=== PATIENT | female | born 1970 | race Caucasian/White ===

== ENCOUNTER 2016-06-20 15:25 | Outpatient (CLI) ==
[2015-01-30 09:40] VITALS: BMI 28.2
[2016-06-20 16:26] LABS: BASOPHILS % (AUTO) 0.4 % (0.0-3.0); EOSINOPHILS # (AUTO) 0.1 K/ul (0.0-0.7); EOSINOPHILS % (AUTO) 0.8 % (0.0-7.0); HEMATOCRIT 44.3 % (37.0-47.0); HEMOGLOBIN 15.3 g/dl (12.0-16.0); IMMATURE GRANULOCYTE % (AUTO) 0.3 % (0.0-5.0); LYMPHOCYTES # (AUTO) 2.3 K/uL (0.60-3.4); LYMPHOCYTES % (AUTO) 30.7 (10.0-50.0); MEAN CORPUSCULAR HEMOGLOBIN 38.3 pg (27.0-31.0); MEAN CORPUSCULAR HGB CONC 34.5 (31.8-35.4); MEAN CORPUSCULAR VOLUME 110.8 fl (81.0-99.0); MONOCYTES # (AUTO) 0.5 K/uL (0.4-2.0); MONOCYTES % (AUTO) 6.3 (0-10); NEUTROPHILS # (AUTO) 4.6 K/ul (2.0-6.9); NEUTROPHILS % (AUTO) 61.5; PLATELET COUNT 200 10^3/uL (140-440); WHITE BLOOD COUNT 7.45 K/ul (4.6-10.2)
[2016-06-20 17:58] LABS: ALBUMIN 3.5 g/dL (3.4-5.0); ALBUMIN/GLOBULIN RATIO 1.13; ANION GAP 14.7; BILIRUBIN,TOTAL 1.03 mg/dL (0.00-1.20); BUN/CREATININE RATIO 8.69; CALCIUM 9.1 mg/dL (8.2-10.2); CHOL/HDL RATIO 3.6 (4.5-5.5); CREATININE 0.69 mg/dL (0.60-1.30); POTASSIUM 3.7 mmol/L (3.5-5.10); TOTAL PROTEIN 6.6 g/dL (6.4-8.2)
== END 2016-06-20 15:26 | disposition home or self-care (01) ==
LOC: LAB 15:25
PROVIDERS: ATTEND Nurse Practitioner Family
DX: E78.5 Hyperlipidemia, unspecified (principal); K21.9 Gastro-esophageal reflux disease without esophagitis
CPT/HCPCS: 36415; 80053; 80061; 84439; 84443; 85025

== ENCOUNTER 2016-07-05 08:54 | Emergency (ER) ==
[2016-07-05 08:59] VITALS: BP 104/72; TEMP 99.3; BMI 27.9
[2016-07-05] MEDS ORDERED: URO-JET MUCOUSMEMB STA (09:03)
--- NOTE | 2016-07-05 09:04 | ED.PDOC ---
General ED Provider: Dr. GILMA GONSALEZ JR Chief Complaint: Back Pain Stated Complaint: patient c/o sudden onset of low back pain. patient states she feels like she has to urinate but then just a little comes out. patient states that if any pressure in abd. it makes back worse. 99.3 108 16 97% 104/ 72 10 Time Seen by Physician: 09:51 Mode of Arrival: Walk-In Information Source: Patient Exam Limitations: No limitations Primary Care Provider: PEGGY GRIFFITH Nursing and Triage Documentation Reviewed and Agree: No Review of Systems - Review Of Systems Constitutional: Reports: No symptoms Eyes: Reports: No symptoms Ears, Nose, Mouth, Throat: Reports: No symptoms Respiratory: Reports: No symptoms Cardiac: Reports: No symptoms GI: Reports: Abdominal pain : Reports: Burning, Dysuria, Frequency, Pain, Urgency Musculoskeletal: Reports: No symptoms Skin: Reports: No symptoms Neurological: Reports: No symptoms Endocrine: Reports: No symptoms Hematologic/Lymphatic: Reports: No symptoms All Other Systems: Other Past Medical History - Past Medical History Endocrine: Reports: None Cardiovascular: Reports: None Respiratory: Reports: None Hematological: Reports: None Gastrointestinal: Reports: Pancreatitis Genitourinary: Reports: None Neuro/Psych: Reports: None Musculoskeletal: Reports: None Cancer: Reports: None Last Menstrual Period: years ago - Surgical History General Surgical History: Reports: None - Family History Family History: Reports: Unknown - Social History Smoking Status: Current every day smoker Hx Substance Use: No Alcohol Screening: Occasionally Physical Exam - Physical Exam Appearance: Well-appearing Pain Distress: Moderate Neck: Supple Respiratory: Airway patent GI/: Tender Critical Care Note - Critical Care Note Total Time (mins): 0 Course - Course Orders, Labs, Meds: Lab Review 07/05/16 09:11 Urine Color Dark Urine Clarity Cloudy Urine pH 6.0 Ur Specific [place] 1.020 Urine Protein 3+ Urine Glucose (UA) Negative Urine Ketones Trace Urine Blood 2+ Urine Nitrite Positive Urine Bilirubin 1+ Urine Urobilinogen 1.0 Ur Leukocyte Esterase 3+ Urine Microscopic WBC Tntc Ur Squamous Epith Cells Not present Orders Category Date Time Status Bladder Scan [ED BLADDER SCAN] .ONCE EMERGENCY 07/05/16 09:00 Active Luna [ED CATHETER INSERTION AND CARE] .ONCE EMERGENCY 07/05/16 09:03 Inactive UA [URINALYSIS C & S IF INDICATED] Stat LAB 07/05/16 09:11 Completed URINE CULTURE Stat LAB 07/05/16 09:22 Received Nitrofurantoin Monohyd/M-Cryst [Macrobid] MEDS 07/05/16 09:50 Discontinued 100 mg PO ONCE STA Medications Discontinued Medications Generic Name Dose Route Start Last Admin Trade Name Freq PRN Reason Stop Dose Admin Nitrofurantoin Macrocrystals 100 mg 07/05/16 09:50 07/05/16 10:04 Macrobid PO 07/05/16 09:51 100 mg ONCE STA Administration Vital Signs: Temp Pulse Resp BP Pulse Ox 07/05/16 08:55 99.3 F 108 H 16 104/72 97 Departure - Departure Time of Disposition: 10:07 Disposition: HOME SELF-CARE Discharge Problem: Backache, UTI (urinary tract infection) Instructions: Urinary Tract Infection in Women (ED), Phenazopyridine (By mouth) Condition: Fair Pt referred to PMD for follow-up: Yes Additional Instructions: recheck urine in two weeks take antibiotic for one week 8-10 cups of water or clear liquids daily Tylenol and Motrin for pain and fever pyridium may help for urinary discomfort Prescriptions: Ibuprofen [Motrin] 600 mg PO QID PRN #30 tablet PRN Reason: PAIN Nitrofurantoin Monohyd/M-Cryst [Macrobid] 100 mg PO BID #14 capsule Allergies/Adverse Reactions: Allergies levofloxacin [From Levaquin] Adverse Reaction (Verified 01/30/15 09:53) levofloxacin Adverse Reaction (Uncoded 09/25/13 20:49) Home Medications: Ambulatory Orders Multivitamin [Multi-Vitamin Daily] 1 tab PO DAILY 09/25/13 Tizanidine HCl [Zanaflex] 4 mg PO BID 11/03/15 Gabapentin 200 mg PO TID 06/20/16 Oxycodone HCl/Acetaminophen [Oxycodon-Acetaminophen 7.5-325] 1 each PO TID 06/20 Ibuprofen 800 mg PO BID PRN 07/05/16 Ibuprofen [Motrin] 600 mg PO QID PRN #30 tablet 07/05/16 Nitrofurantoin Monohyd/M-Cryst [Macrobid] 100 mg PO BID #14 capsule 07/05/16 Sucralfate [Carafate] 1 gm PO PRN PRN 07/05/16
[2016-07-05 09:17] LABS: BILIRUBIN,URINE 1+ (NEGATIVE); KETONES,URINE Trace (NEGATIVE); LEUKOCYTE ESTERASE ,URINE 3+ (NEGATIVE); NITRITE,URINE Positive (NEGATIVE); PROTEIN,URINE 3+ (NEGATIVE); URINE, BLOOD 2+ (NEGATIVE)
[2016-07-05 09:22] LABS: ADD URINE MICROSCOPIC YES
[2016-07-05] MEDS ORDERED: MACROBID PO STA (09:50)
== END 2016-07-05 10:36 | disposition home or self-care (01) ==
LOC: ED 08:54
DX: N39.0 Urinary tract infection, site not specified (principal); F17.210 Nicotine dependence, cigarettes, uncomplicated
CPT/HCPCS: 81001; 87086; 87186; 99282

== ENCOUNTER 2016-07-06 08:52 | Emergency (ER) ==
[2016-07-06 08:58] VITALS: TEMP 97.6; BMI 27.4
[2016-07-06] MEDS ORDERED: SODIUM CHLORIDE 1,000 ML IV STA ×2 (09:06→13:14)
--- NOTE | 2016-07-06 09:34 | DI ---
EXAM: Chest two view, frontal and lateral views. HISTORY: Cough. COMPARISON: 08/07/2013. FINDINGS: Heart size is at the upper limits of normal. There is consolidation in the left lower lo be along the diaphragm. Lungs otherwise clear save for calcified granulomatous changes. No pleural effusion or pneumothorax identified. No acute osseous abnormality identified. High density projec ting over the left shoulder on the frontal view is not clearly seen on the lateral view, likely exte rnal to the patient. IMPRESSION: Left basilar pneumonia.
[2016-07-06 09:53] LABS: BASOPHILS % (AUTO) 0.4 % (0.0-3.0); EOSINOPHILS % (AUTO) 0.1 % (0.0-7.0); HEMATOCRIT 39.1 % (37.0-47.0); HEMOGLOBIN 13.7 g/dl (12.0-16.0); IMMATURE GRANULOCYTE % (AUTO) 1.2 % (0.0-5.0); LYMPHOCYTES # (AUTO) 0.2 K/uL (0.60-3.4); MEAN CORPUSCULAR HEMOGLOBIN 38.7 pg (27.0-31.0); MEAN CORPUSCULAR VOLUME 110.5 fl (81.0-99.0); MONOCYTES # (AUTO) 0.1 K/uL (0.4-2.0); MONOCYTES % (AUTO) 0.7 (0-10); NEUTROPHILS # (AUTO) 10.8 K/ul (2.0-6.9); NEUTROPHILS % (AUTO) 95.6; PLATELET COUNT 123 10^3/uL (140-440); RED BLOOD COUNT 3.54 10^6/ul (4.20-5.40); WHITE BLOOD COUNT 11.25 K/ul (4.6-10.2)
[2016-07-06 10:01] LABS: ANISOCYTOSIS NOT PRESENT (NOT PRESENT)
--- NOTE | 2016-07-06 10:11 | CT ---
EXAM: CT abdomen pelvis without contrast HISTORY: Left flank pain COMPARISON: CT lumbar spine 01/30/2015, CT abdomen pelvis 09/25/2013 and MRI 05/01/2014 TECHNIQUE: Serial axial images of the abdomen pelvis were performed from the lung bases through the inferior pelvis without contrast. These were viewed in multiple planes. FINDINGS: The lung bases demonstrate minimal ground-glass and airway thickening in the left lower l obe. Evaluation is limited due to lack of contrast. The left kidney demonstrates mild perinephric strandi ng. There are approximately five 0.2 cm in diameter stones in the left kidney with no hydronephrosi s or hydroureter. There is minimal inflammatory stranding extending inferiorly in the retroperitone um and along the course of the proximal ureter. The urinary bladder is nondistended. The right kid patricio demonstrates two nonobstructing stones. The largest in the inferior pole measuring 0.3 cm in di ameter. The liver is diffusely low in attenuation. The gallbladder is unremarkable. The spleen is normal. The adrenal glands are unremarkable. There is a large rounded low attenuation lesion in the pancre atic head measuring 3.0 x 2.4 x 3.1 cm. This demonstrates Hounsfield units consistent with cyst. No definitive peripancreatic inflammation is identified with stranding in the left retroperitoneum. The stomach is normal. There are scattered retroperitoneal lymph nodes which are nonpathologically enla rged. Small bowel in the abdomen pelvis is unremarkable. The colon is normal. The appendix is normal. T here is no free air, free fluid. The uterus is normal. The osseous structures are unremarkable. IMPRESSION: 1. Left perinephric stranding and inflammatory stranding involving the left retroperitoneum along t he course of the left ureter with no hydronephrosis, hydroureter or visualized stone. This is nonspe cific and may represent inflammatory versus early infectious changes. Given history of recurrent alvarez creatitis, recommend correlation with pancreatic enzymes to evaluate for subtle pancreatitis. 2. Cystic lesion in the head of the pancreas likely representing pseudocyst given history of recurr ent pancreatitis. If further evaluation is clinically indicated, MRI pancreatic protocol is recommended. 3. Bilateral nonobstructing renal stones are present.
[2016-07-06 10:13] LABS: ALANINE AMINOTRANSFERASE 45 U/L (12-78); ALBUMIN 3.2 g/dL (3.4-5.0); ALBUMIN/GLOBULIN RATIO 0.94; ALKALINE PHOSPHATASE 64 U/L (42-98); ANION GAP 18.5; ASPARTATE AMINO TRANSFERASE 42 U/L (15-37); BILIRUBIN,TOTAL 1.33 mg/dL (0.00-1.20); BLOOD UREA NITROGEN 29 mg/dL (7-18); BUN/CREATININE RATIO 10.39; CALCIUM 9.2 mg/dL (8.2-10.2); CARBON DIOXIDE 20 mmol/L (21-32); CHLORIDE 97 mmol/L (98-107); CREATINE KINASE 30 U/L; CREATININE 2.79 mg/dL (0.60-1.30); GLUCOSE 88 mg/dL (70-110); POTASSIUM 3.5 mmol/L (3.5-5.10); SODIUM 132 mmol/L (136-145); TOTAL PROTEIN 6.6 g/dL (6.4-8.2)
--- NOTE | 2016-07-06 10:22 | ED.PDOC ---
General ED Provider: Dr. LESLEY TAYLOR Chief Complaint: Weakness Stated Complaint: cough, weakness Time Seen by Physician: 09:00 (nurse present carmen) Mode of Arrival: Walk-In Information Source: Patient Nursing and Triage Documentation Reviewed and Agree: Yes (seen by maribell 1 day ago for uti) Respiratory Complaint Exam - Respiratory Complaint/Exam Symptoms Are: Still present Timing: Constant Initial Severity: Moderate Current Severity: Moderate Character: Reports: Non-productive cough Aggravating: Reports: Weather Alleviating: Reports: Spontaneous resolution, Nasal suction Associated Signs and Symptoms: Reports: Chills, Nasal congestion, Decreased oral intake History of Healthcare-Acquired Pneumonia: No Related Surgical History: Reports: None Pulmonary Embolism Risk Factors: Smoking Cardiac Risk Factors: Reports: Smoking Pseudomonas Risk Factors: Reports: None Tuberculosis Risk Factors: Reports: None Status Asthmaticus Risk Factors: Reports: None Home Oxygen Use: No Recent Stress Test: No Recent Echo/LV Function: No Current Antibiotic Use: No Current Asthma Medication Use: No Respiratory Distress: None Inadequate Respiratory Effort: No Dysphagia Present: No Stridor Present: No JVD Present: No Accessory Muscle Use: No Retractions: Not Present Diminished Breath Sounds: No Sinus Tenderness: None Grunting Respirations: No Kussmaul Respirations: No Differential Diagnoses: Pneumonia, Bronchitis, URI, Lower Resp. Infection Review of Systems - Review Of Systems Constitutional: Reports: Malaise, Weakness, Loss of appetite Eyes: Reports: No symptoms Ears, Nose, Mouth, Throat: Reports: No symptoms Respiratory: Reports: Cough Cardiac: Reports: No symptoms GI: Reports: No symptoms : Reports: No symptoms Musculoskeletal: Reports: No symptoms Skin: Reports: No symptoms Neurological: Reports: No symptoms Endocrine: Reports: No symptoms Hematologic/Lymphatic: Reports: No symptoms All Other Systems: Reviewed and Negative Past Medical History - Past Medical History Endocrine: Reports: None Cardiovascular: Reports: None Respiratory: Reports: None Hematological: Reports: None Gastrointestinal: Reports: Pancreatitis Genitourinary: Reports: None Neuro/Psych: Reports: None Musculoskeletal: Reports: None Cancer: Reports: None Last Menstrual Period: "years ago" - Surgical History General Surgical History: Reports: None - Family History Family History: Reports: Unknown - Social History Smoking Status: Current every day smoker Hx Substance Use: No Alcohol Screening: Occasionally Physical Exam - Physical Exam Appearance: Well-appearing Eyes: RADHA, EOMI, Conjunctiva clear ENT: Ears normal, Nose normal, Oropharynx normal Respiratory: Rhonchi (left lung) Cardiovascular: RRR, Pulses normal, No rub, No murmur GI/: Soft, Nontender, No masses, Bowel sounds normal, No Organomegaly Musculoskeletal: Normal strength, ROM intact, No edema, No calf tenderness Skin: Warm, Dry, Normal color Neurological: Sensation intact, Motor intact, Reflexes intact, Cranial nerves intact, Alert, Oriented Psychiatric: Affect appropriate, Mood appropriate Interpretation - Radiology Interpretation Radiology Interpretation By: Radiologist Radiology Results: Positive (lll infitrate) - Parallel Computing Software Engineer Rate: Normal Rhythm: Sinus Ectopy: None - EKG Interpretation Rate: Normal Rhythm: Sinus Ectopy: None [place]: NL ST Segment: Normal Re-Evaluation - Re-Evaluation Time of Re-Evaluation: 10:00 Status: Unchanged Vital Signs Stable: No Pain Level: 0 Appearance: NAD Lungs: Clear Skin: Warm and Dry Neuro: Alert and Oriented X3 CV: RRR - Re-Evaluation Time of Re-Evaluation: 14:18 Status: Unchanged Vital Signs Stable: No (refuses to be admitted i beggedpt to stay told her flat OUT THAT SHE WILL ) Appearance: NAD Skin: Warm and Dry Neuro: Alert and Oriented X3 (THAT SHE WILL IN MATTER OF HOURS SHE WOULD NOT AGREE WITH ADMISSION NOR TRANSFER MATIAS AT BEDSIDE THROUGH OUT THIS ISSUE REFUSES TO BE ADMITTED) CV: RRR Critical Care Note - Critical Care Note Total Time (mins): 0 Course - Course Hematology/Chemistry: 07/06/16 09:35 07/06/16 09:35 Orders, Labs, Meds: Lab Review 07/06/16 09:35 WBC 11.25 H RBC 3.54 L Hgb 13.7 Hct 39.1 MCV 110.5 H MCH 38.7 H MCHC 35.0 RDW Coeff of Mee 13.2 Plt Count 123 L Immature Gran % (Auto) 1.2 Neut % (Auto) 95.6 Lymph % (Auto) 2.0 L [place] % (Auto) 0.7 Eos % (Auto) 0.1 Baso % (Auto) 0.4 Immature Gran # (Auto) 0.1 Neut # 10.8 H Lymph # 0.2 L [place] # 0.1 L Eos # 0.0 Baso # 0.0 Macrocytosis 2+ Sodium 132 L Potassium 3.5 Chloride 97 L Carbon Dioxide 20 L Anion Gap 18.5 BUN 29 H Creatinine 2.79 H Estimated GFR (MDRD) 18.00 BUN/Creatinine Ratio 10.39 Glucose 88 Lactic Acid 26.6 H Calcium 9.2 Total Bilirubin 1.33 H AST 42 H ALT 45 Alkaline Phosphatase 64 Total Creatine Kinase 30 Troponin I < 0.0100 Total Protein 6.6 Albumin 3.2 L Globulin 3.4 Albumin/Globulin Ratio 0.94 Orders Category Date Time Status EKG-(ED ONLY) Stat CARDIO 07/06/16 09:06 Completed BLOOD CULTURE Stat LAB 07/06/16 09:35 Received CBC W/ AUTO DIFF Stat LAB 07/06/16 09:35 Completed COMPREHENSIVE METABOLIC PANEL Stat LAB 07/06/16 09:35 Completed CREATINE KINASE Stat LAB 07/06/16 09:35 Completed LACTIC ACID Stat LAB 07/06/16 09:35 Completed MOLECULAR GROUP A STREP Stat LAB 07/06/16 09:32 Results RBC MORPHOLOGY Stat LAB 07/06/16 09:35 Completed STREP SCREEN Stat LAB 07/06/16 09:32 Results TROPONIN I Stat LAB 07/06/16 09:35 Completed URINALYSIS C & S IF INDICATED Stat LAB 07/06/16 09:05 Uncollected Azithromycin Inj [Zithromax] 500 mg MEDS 07/06/16 10:30 Discontinued 0.9 % Sodium Chloride [Sodium Chloride] 250 ml IV ONCE Ceftriaxone Sodium [Rocephin] MEDS 07/06/16 10:33 Discontinued 2 gm .ROUTE .STK-MED ONE Ceftriaxone Sodium [Rocephin] 2 gm MEDS 07/06/16 10:29 Discontinued 0.9 % Sodium Chloride [Sodium Chloride] 100 ml IV ONCE Sodium Chloride 0.9% [Sodium Chloride] 1,000 ml MEDS 07/06/16 09:06 Discontinued IV BOLUS Sodium Chloride 0.9% [Sodium Chloride] 1,000 ml MEDS 07/06/16 13:14 Discontinued IV BOLUS CHEST, 2 VIEWS PA & LAT Stat RADS 07/06/16 09:[address] ABD/PEL WO RENAL STONE PROT Stat RADS 07/06/16 09:07 Completed Medications Discontinued Medications Generic Name Dose Route Start Last Admin Trade Name Freq PRN Reason Stop Dose Admin Sodium Chloride 1,000 mls @ 1,000 mls/hr 07/06/16 09:06 07/06/16 09:36 Sodium Chloride IV 07/06/16 10:05 1,000 mls/hr BOLUS STA Administration Ceftriaxone Sodium 2 gm/ 100 mls @ 100 mls/hr 07/06/16 10:29 07/06/16 10:43 Sodium Chloride IV 07/06/16 11:28 100 mls/hr ONCE STA Administration Azithromycin 500 mg/ Sodium 250 mls @ 125 mls/hr 07/06/16 10:30 07/06/16 12: 00 Chloride IV 07/06/16 12:29 125 mls/hr ONCE STA Administration Sodium Chloride 1,000 mls @ 1,000 mls/hr 07/06/16 13:14 07/06/16 13:15 Sodium Chloride IV 07/06/16 14:13 1,000 mls/hr BOLUS STA Administration Vital Signs: Temp Pulse Resp BP Pulse Ox 07/06/16 13:09 76/39 L 07/06/16 08:52 97.6 F 101 H 20 85/63 L 94 L Departure - Departure Time of Disposition: 12:00 (PT REFUSING TO BE ADMITTED A[facility] PRESENT DURING MY ATTEMPT TO INFORM PT TO SATY PANCREASE CYST AND NEED FOR MRI DISCUSSED SOON POSSIBLE) Disposition: AMA Discharge Problem: Renal insufficiency, Cyst of pancreas Pneumonia Qualifiers: Aspiration pneumonia type: unspecified Laterality: left Instructions: Pneumonitis (ED), Hypotension (ED), Chronic Kidney Disease (ED) Condition: Good Pt referred to PMD for follow-up: No Additional Instructions: this is a highly deadly situation return at once if you should change your mind there a cysst on your pancrease these must be closely followed up sometime these cysts can turn in to cancer. THE PANCREASE CANCER IS HIGHLY DEADLY DISEASE , YOU MUST SEE YOUR MD FOR MRI OF THE PANCREASE . SOON POSSIBLE. Prescriptions: Azithromycin [Zithromax] 500 mg PO DIRECTED #6 tablet Allergies/Adverse Reactions: Allergies levofloxacin [From Levaquin] Adverse Reaction (Verified 01/30/15 09:53) levofloxacin Adverse Reaction (Uncoded 09/25/13 20:49) Home Medications: Ambulatory Orders Multivitamin [Multi-Vitamin Daily] 1 tab PO DAILY 09/25/13 Tizanidine HCl [Zanaflex] 4 mg PO BID 11/03/15 Gabapentin 200 mg PO TID 06/20/16 Oxycodone HCl/Acetaminophen [Oxycodon-Acetaminophen 7.5-325] 1 each PO TID 06/20 Ibuprofen 800 mg PO BID PRN 07/05/16 Ibuprofen [Motrin] 600 mg PO QID PRN #30 tablet 07/05/16 Nitrofurantoin Monohyd/M-Cryst [Macrobid] 100 mg PO BID #14 capsule 07/05/16 Sucralfate [Carafate] 1 gm PO PRN PRN 07/05/16 Azithromycin [Zithromax] 500 mg PO DIRECTED #6 tablet 07/06/16 Disposition Discussed With: Patient
[2016-07-06] MEDS ORDERED: ROCEPHIN 2 GM in SODIUM CHLORIDE 100 ML IV STA (10:29)
[2016-07-06] MEDS ORDERED: ZITHROMAX 500 MG in SODIUM CHLORIDE 250 ML IV STA (10:30)
[2016-07-06] MEDS ORDERED: ROCEPHIN ONE (10:33)
[2016-07-06 13:09] VITALS: BP 76/39
== END 2016-07-06 14:33 | disposition left against medical advice (07) ==
LOC: ED 08:52
DX: K86.2 Cyst of pancreas (principal); N28.9 Disorder of kidney and ureter, unspecified; J69.0 Pneumonitis due to inhalation of food and vomit; I95.9 Hypotension, unspecified; R05 Cough; R53.1 Weakness; F17.210 Nicotine dependence, cigarettes, uncomplicated
CPT/HCPCS: 36415; 74176; 80053; 82550; 83605; 84484; 85008; 85025; 87040; 87070; 87186; 87651; 87880; 93005; 93010; 96361; 96365; 96366; 96367; 99284

== ENCOUNTER 2016-07-11 11:02 | Outpatient (CLI) ==
[2016-07-11 11:26] LABS: BASOPHILS # (AUTO) 0.1 K/uL (0-0.2); BASOPHILS % (AUTO) 0.6 % (0.0-3.0); EOSINOPHILS # (AUTO) 0.2 K/ul (0.0-0.7); EOSINOPHILS % (AUTO) 1.3 % (0.0-7.0); HEMATOCRIT 38.2 % (37.0-47.0); HEMOGLOBIN 14.3 g/dl (12.0-16.0); IMMATURE GRANULOCYTE % (AUTO) 3.5 % (0.0-5.0); LYMPHOCYTES # (AUTO) 1.7 K/uL (0.60-3.4); LYMPHOCYTES % (AUTO) 13.3 (10.0-50.0); MEAN CORPUSCULAR HEMOGLOBIN 39.1 pg (27.0-31.0); MEAN CORPUSCULAR HGB CONC 37.4 (31.8-35.4); MEAN CORPUSCULAR VOLUME 104.4 fl (81.0-99.0); MONOCYTES # (AUTO) 0.9 K/uL (0.4-2.0); MONOCYTES % (AUTO) 6.8 (0-10); NEUTROPHILS # (AUTO) 9.7 K/ul (2.0-6.9); NEUTROPHILS % (AUTO) 74.5; PLATELET COUNT 64 10^3/uL (140-440); RED BLOOD COUNT 3.66 10^6/ul (4.20-5.40); WHITE BLOOD COUNT 12.99 K/ul (4.6-10.2)
[2016-07-11 11:33] LABS: BILIRUBIN,URINE 2+ (NEGATIVE); KETONES,URINE Negative (NEGATIVE); LEUKOCYTE ESTERASE ,URINE 1+ (NEGATIVE); NITRITE,URINE Positive (NEGATIVE); PROTEIN,URINE 1+ (NEGATIVE); URINE, BLOOD 3+ (NEGATIVE)
[2016-07-11 11:37] LABS: ADD URINE MICROSCOPIC YES
[2016-07-11 11:39] LABS: BACTERIA,URINE 1+ (NOT PRESENT)
[2016-07-11 12:00] LABS: ALBUMIN 2.5 g/dL (3.4-5.0); ALBUMIN/GLOBULIN RATIO 0.69; ANION GAP 14.9; BILIRUBIN,TOTAL 3.61 mg/dL (0.00-1.20); BUN/CREATININE RATIO 21.68; CALCIUM 9.5 mg/dL (8.2-10.2); CREATININE 0.83 mg/dL (0.60-1.30); POTASSIUM 2.9 mmol/L (3.5-5.10); TOTAL PROTEIN 6.1 g/dL (6.4-8.2)
== END 2016-07-11 11:03 | disposition home or self-care (01) ==
LOC: LAB 11:02
PROVIDERS: ATTEND Nurse Practitioner Family
DX: N39.0 Urinary tract infection, site not specified (principal); R94.4 Abnormal results of kidney function studies; K86.2 Cyst of pancreas; R19.7 Diarrhea, unspecified; R41.89 Other symptoms and signs involving cognitive functions and awareness; R53.1 Weakness; R53.83 Other fatigue; R63.0 Anorexia
CPT/HCPCS: 36415; 80053; 81001; 82140; 82150; 83690; 85025; 87086

== ENCOUNTER 2016-07-13 11:34 | Inpatient (IN) ==
[2016-07-13] MEDS ORDERED: SODIUM CHLORIDE 1,000 ML IV STA (12:04)
[2016-07-13] MEDS ORDERED: ROCEPHIN 1 GM in SODIUM CHLORIDE 100 ML IV STA (12:05)
[2016-07-13] MEDS ORDERED: ROCEPHIN ONE (12:21)
[2016-07-13 12:27] LABS: ABG PH 7.506 (7.35-7.45)
[2016-07-13 12:28] LABS: ABG BASE EXCESS -4 (-2.0-2.0); ABG HCO3 19.4 (22.0-26.0); ABG PCO2 24.6 mmHg (35-45); ABG TCO2 20 (22.0-28.0)
[2016-07-13 12:38] LABS: BILIRUBIN,URINE 1+ (NEGATIVE); KETONES,URINE Trace (NEGATIVE); LEUKOCYTE ESTERASE ,URINE 1+ (NEGATIVE); NITRITE,URINE Negative (NEGATIVE); PROTEIN,URINE 1+ (NEGATIVE); URINE, BLOOD 3+ (NEGATIVE)
[2016-07-13 12:39] LABS: URINE PREGNANCY INTERNAL QC INTERNAL QC VALID
[2016-07-13 12:40] LABS: ADD URINE MICROSCOPIC YES
[2016-07-13 12:42] LABS: BACTERIA,URINE 1+ (NOT PRESENT)
[2016-07-13 12:44] LABS: BASOPHILS # (AUTO) 0.1 K/uL (0-0.2); BASOPHILS % (AUTO) 0.3 % (0.0-3.0); EOSINOPHILS # (AUTO) 0.1 K/ul (0.0-0.7); EOSINOPHILS % (AUTO) 0.6 % (0.0-7.0); HEMATOCRIT 38.4 % (37.0-47.0); HEMOGLOBIN 14.4 g/dl (12.0-16.0); IMMATURE GRANULOCYTE % (AUTO) 2.2 % (0.0-5.0); LYMPHOCYTES # (AUTO) 2.4 K/uL (0.60-3.4); LYMPHOCYTES % (AUTO) 12.5 (10.0-50.0); MEAN CORPUSCULAR HEMOGLOBIN 38.5 pg (27.0-31.0); MEAN CORPUSCULAR HGB CONC 37.5 (31.8-35.4); MEAN CORPUSCULAR VOLUME 102.7 fl (81.0-99.0); MONOCYTES # (AUTO) 1.5 K/uL (0.4-2.0); NEUTROPHILS # (AUTO) 14.5 K/ul (2.0-6.9); NEUTROPHILS % (AUTO) 76.4; PLATELET COUNT 129 10^3/uL (140-440); RED BLOOD COUNT 3.74 10^6/ul (4.20-5.40); WHITE BLOOD COUNT 18.91 K/ul (4.6-10.2)
[2016-07-13 12:55] LABS: ALBUMIN 2.7 g/dL (3.4-5.0); ALBUMIN/GLOBULIN RATIO 0.69; ANION GAP 15.7; BILIRUBIN,TOTAL 1.96 mg/dL (0.00-1.20); BUN/CREATININE RATIO 13.04; CALCIUM 8.9 mg/dL (8.2-10.2); CREATININE 0.69 mg/dL (0.60-1.30); TOTAL PROTEIN 6.6 g/dL (6.4-8.2)
[2016-07-13 12:59] LABS: POTASSIUM 2.7 mmol/L (3.5-5.10)
--- NOTE | 2016-07-13 13:49 | CT ---
EXAM: CT chest, abdomen and pelvis without contrast HISTORY: UTI with fever and flank pain COMPARISON: Chest x-ray 07/06/2016, MRI abdomen 05/01/[address] abdomen pelvis 09/25/[address] abdomen pelvis 07/06/[address] lumbar spine 01/30/2015. TECHNIQUE: Serial axial images of the chest, abdomen and pelvis were performed from the lung apices through the inferior pelvis without contrast. These were viewed in multiple planes. FINDINGS: Chest: The thyroid is normal. The aorta and pulmonary arteries are unremarkable. There are no pat hologically enlarged mediastinal or hilar lymph nodes. There are no axillary enlarged lymph nodes. Heart is normal in size without pericardial effusion. There is no pneumothorax or pleural effusion . There is minimal scattered emphysematous disease. There is mild bibasilar atelectasis. There is no acute consolidation, nodule or mass. Calcified granulomas are identified. There is minimal left lower lobe airway thickening. The osseous structures are unremarkable. Abdomen/pelvis: The liver demonstrates mild hepatic steatosis. The gallbladder is unremarkable. T he adrenal glands are unremarkable. The spleen is normal. The pancreas demonstrates a cystic low a ttenuation lesion in the pancreatic head measuring 3.1 x 2.4 cm. The stomach is normal. The small bowel in the abdomen pelvis is unremarkable. The colon is unremarkable. The uterus is un remarkable. Urinary bladder is distended. There is no free air, free fluid or lymphadenopathy. Th e osseous structures are unremarkable. The kidneys demonstrate a lobular appearance of the left kidney with perinephric stranding and inter tello development of lobular low attenuation which is ill-defined as seen on axial image 69 and macias l image 59. No focal fluid collection is identified. The right kidney is unremarkable. IMPRESSION: 1. Irregular appearance of the left kidney with mild low attenuation and perinephric stranding sugg estive of pyelonephritis. No focal fluid collection is identified. 2. Persistent low attenuation cystic lesion in the head of the pancreas, unchanged from prior exam most consistent with a pseudocyst. 3. Mild hepatic steatosis. 4. Minimal small airway thickening in the left lower lobe may represent reactive changes versus mil d small airways inflammation..
--- NOTE | 2016-07-13 14:09 | ED.PDOC ---
General ED Provider: Dr. KEO WILLOUGHBY-ER Chief Complaint: Non-specific Complaint Stated Complaint: i m supposed to be admitted Time Seen by Physician: 11:45 Mode of Arrival: Walk-In Information Source: Patient Exam Limitations: No limitations Primary [facility] Nursing and Triage Documentation Reviewed and Agree: Yes GI Complaint Exam - Abdominal Pain Complaint/Exam Onset: Gradual Duration: several days Symptoms Are: Still present Timing: Constant Initial Severity: Mild Current Severity: Moderate Radiates To: Reports: Flank Character: Reports: Dull, Aching Aggravating: Reports: None Alleviating: Reports: None Associated Signs and Symptoms: Reports: Fever, Back pain. Denies: Diaphoresis, Cough, Chest pain, Dizziness, Constipation, Blood in stool, Dysuria, Urinary frequency, Decreased urine output, Decreased appetite, Vaginal bleeding, Vaginal discharge, Nausea, Vomiting, Diarrhea, Sore throat, Decreased activity Related History: Reports: Similar episode AAA Risk Factors: Reports: None Cardiac Risk Factors: Reports: None Ectopic Risk Factors: Reports: None Ovarian Torsion Risk Factors: Reports: None Surgical Obstruction Risk Factors: Reports: None Related Surgical History: Reports: None Patient Rh Status: Unknown Abdominal Findings: Present: None Differential Diagnoses: Ureteral Stone, UTI Review of Systems - Review Of Systems Constitutional: Reports: Chills, Fever, Weakness Eyes: Reports: No symptoms Ears, Nose, Mouth, Throat: Reports: No symptoms Respiratory: Reports: No symptoms Cardiac: Reports: No symptoms GI: Reports: Abdominal pain : Reports: Flank pain Musculoskeletal: Reports: No symptoms Skin: Reports: No symptoms Neurological: Reports: No symptoms Endocrine: Reports: No symptoms Hematologic/Lymphatic: Reports: No symptoms All Other Systems: Reviewed and Negative Past Medical History - Past Medical History Endocrine: Reports: None Cardiovascular: Reports: None Respiratory: Reports: None Hematological: Reports: None Gastrointestinal: Reports: Pancreatitis Genitourinary: Reports: None Neuro/Psych: Reports: None Musculoskeletal: Reports: None Cancer: Reports: None Last Menstrual Period: years ago - Surgical History General Surgical History: Reports: None - Family History Family History: Reports: Unknown - Social History Smoking Status: Current every day smoker Hx Substance Use: No Alcohol Screening: Occasionally Lives: With family Physical Exam - Physical Exam Appearance: Well-appearing, No pain distress, Well-nourished Pain Distress: Mild Eyes: RADHA, EOMI, Conjunctiva clear ENT: Ears normal, Nose normal, Oropharynx normal Respiratory: Airway patent, Breath sounds clear, Breath sounds equal, Respirations nonlabored Cardiovascular: RRR, Pulses normal, No rub, No murmur GI/: Soft Musculoskeletal: Normal strength, ROM intact, No edema, No calf tenderness Skin: Warm, Dry, Normal color Neurological: Sensation intact Psychiatric: Affect appropriate, Mood appropriate Interpretation - Radiology Interpretation Radiology Interpretation By: Radiologist Radiology Results: Positive Exam Interpreted: CT Scan Physician Notification - Case Discussed Physician Notified: dr osuna Time of Notification: 14:09 Critical Care Note - Critical Care Note Total Time (mins): 0 Course - Course Hematology/Chemistry: 07/13/16 12:30 07/13/16 12:30 Orders, Labs, Meds: Lab Review 07/13/16 07/13/16 07/13/16 11:58 12:02 12:30 WBC 18.91 H D RBC 3.74 L Hgb 14.4 Hct 38.4 MCV 102.7 H MCH 38.5 H MCHC 37.5 H RDW Coeff of Mee 14.0 Plt Count 129 L Immature Gran % (Auto) 2.2 Neut % (Auto) 76.4 Lymph % (Auto) 12.5 [place] % (Auto) 8.0 Eos % (Auto) 0.6 Baso % (Auto) 0.3 Immature Gran # (Auto) 0.4 Neut # 14.5 H Lymph # 2.4 [place] # 1.5 Eos # 0.1 Baso # 0.1 D-Dimer 2.20 Puncture Site Rb O2 Saturation 99.0 ABG pH 7.506 H* ABG pCO2 24.6 L ABG pO2 109.0 H ABG HCO3 19.4 L ABG Total CO2 20 L ABG Base Excess -4 L FiO2 % 21.0 Sodium 136 Potassium 2.7 L* Chloride 99 Carbon Dioxide 24 Anion Gap 15.7 BUN 9 Creatinine 0.69 Estimated GFR (MDRD) 92.00 BUN/Creatinine Ratio 13.04 Glucose 109 Calcium 8.9 Total Bilirubin 1.96 H D AST 50 H D ALT 43 Alkaline Phosphatase 208 H D B-Natriuretic Peptide 205 H Total Protein 6.6 Albumin 2.7 L Globulin 3.9 Albumin/Globulin Ratio 0.69 Amylase 29 Lipase 36 Urine Color [place] Urine Clarity Slightly Urine pH 6.0 Ur Specific [place] 1.015 Urine Protein 1+ Urine Glucose (UA) Negative Urine Ketones Trace Urine Blood 3+ Urine Nitrite Negative Urine Bilirubin 1+ Urine Urobilinogen 0.2 Ur Leukocyte Esterase 1+ Urine Microscopic RBC 30-50 Urine Microscopic WBC 50-100 Ur Squamous Epith Cells 2-5 Urine Bacteria 1+ Urine Test Negative Orders Category Date Time Status ABG DRAW REQUEST Stat CARDIO 07/13/16 12:03 Completed EKG-(ED ONLY) Stat CARDIO 07/13/16 12:03 Completed 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] .ONCE EMERGENCY 07/13/16 13:01 Active IV [ED IV/MEDIPORT/POWERPORT] .ONCE EMERGENCY 07/13/16 12:04 Active ABG Stat LAB 07/13/16 12:02 Completed AMYLASE Stat LAB 07/13/16 12:30 Completed BLOOD CULTURE Stat LAB 07/13/16 12:30 Received BNP [B-TYPE NATRIURETIC PEPTIDE] Stat LAB 07/13/16 12:30 Completed CBC W/ AUTO DIFF Stat LAB 07/13/16 12:30 Completed COMPREHENSIVE METABOLIC PANEL Stat LAB 07/13/16 12:30 Completed D-DIMER Stat LAB 07/13/16 12:30 Completed LIPASE Stat LAB 07/13/16 12:30 Completed URINALYSIS C & S IF INDICATED Stat LAB 07/13/16 11:58 Completed URINE CULTURE Stat LAB 07/13/16 12:42 Received URINE Stat LAB 07/13/16 11:58 Completed 0.9 % Sodium Chloride [Saline Flush] MEDS 07/13/16 12:04 Active 1 syr IVF PRN PRN Ceftriaxone Sodium [Rocephin] MEDS 07/13/16 12:21 Discontinued 1 gm .ROUTE .STK-MED ONE Ceftriaxone Sodium [Rocephin] 1 gm MEDS 07/13/16 12:05 Discontinued 0.9 % Sodium Chloride [Sodium Chloride] 100 ml IV ONCE Sodium Chloride 0.9% [Sodium Chloride] 1,000 ml MEDS 07/13/16 12:04 Active IV 100 mls/hr CT ABDOMEN/PELVIS WO CONTRAST Stat RADS 07/13/16 12:[address] ABDOMEN/PELVIS WO CONTRAST Stat RADS 07/13/16 12:[address] CHEST W/O CONTRAST Stat RADS 07/13/16 12:05 Taken Medications Generic Name Dose Route Start Last Admin Trade Name Freq PRN Reason Stop Dose Admin Sodium Chloride 1,000 mls @ 100 mls/hr 07/13/16 12:04 07/13/16 13:49 Sodium Chloride IV 07/13/16 22:03 100 mls/hr .Q10H STA Administration Sodium Chloride 1 syr 07/13/16 12:04 Saline Flush IVF PRN PRN To flush IV Discontinued Medications Generic Name Dose Route Start Last Admin Trade Name Freq PRN Reason Stop Dose Admin Ceftriaxone Sodium 1 gm/ 100 mls @ 100 mls/hr 07/13/16 12:05 07/13/16 13:49 Sodium Chloride IV 07/13/16 13:04 100 mls/hr ONCE STA Administration Vital Signs: Temp Pulse Resp BP Pulse Ox 07/13/16 11:43 98.1 F 75 16 120/78 98 Departure - Departure Time of Disposition: 14:09 Disposition: ADMITTED INPATIENT Discharge Problem: Pyelonephritis, Hypokalemia Instructions: Urinary Tract Infection in Women (ED) Condition: Good Pt referred to PMD for follow-up: Yes Allergies/Adverse Reactions: Allergies levofloxacin [From Levaquin] Adverse Reaction (Unverified 07/13/16 11:47) levofloxacin Adverse Reaction (Uncoded 07/13/16 11:47) Home Medications: Ambulatory Orders Multivitamin [Multi-Vitamin Daily] 1 tab PO DAILY 09/25/13 Gabapentin 200 mg PO TID 06/20/16 Oxycodone HCl/Acetaminophen [Oxycodon-Acetaminophen 7.5-325] 1 each PO TID 06/20 Ibuprofen 800 mg PO BID PRN 07/05/16 Ibuprofen [Motrin] 600 mg PO QID PRN #30 tablet 07/05/16 Nitrofurantoin Monohyd/M-Cryst [Macrobid] 100 mg PO BID #14 capsule 07/05/16 Sucralfate [Carafate] 1 gm PO PRN PRN 07/05/16 Amoxicillin/Potassium Clav [Augmentin 875-125 Tablet] 1 each PO DIRECTED Disposition Discussed With: Patient
[2016-07-13] MEDS ORDERED: CARAFATE PO PRN ×2 (14:13→16:32)
[2016-07-13] MEDS ORDERED: NON-FORMULARY MEDICATION (Ibuprofen [Ibuprofen] 800 MG) PO PRN ×22 (14:13)
[2016-07-13] MEDS ORDERED: POTASSIUM CHLORIDE PREMIX RUN 40 MEQ in PREMIX 100 ML WATER 2 BAG IV STA (14:19)
[2016-07-13] MEDS ORDERED: SODIUM CHLORIDE 1,000 ML IV SCH (14:30)
[2016-07-13] MEDS ORDERED: POTASSIUM CHLORIDE 10 MEQ VIAL-ADDITIVE ONLY 20 MEQ in SODIUM CHLORIDE 1,000 ML IV SCH (14:30)
[2016-07-13] MEDS ORDERED: NEURONTIN PO SCH (15:00)
[2016-07-13 15:13] VITALS: BMI 26.3
[2016-07-13] MEDS: NEURONTIN PO SCH ×2 (15:46→20:15)
[2016-07-13] MEDS: NICODERM 21 MG TD SCH (15:47)
[2016-07-13] MEDS: SODIUM CHLORIDE 0.9%-KCL 20 MEQ 1,000 ML IV SCH (15:47)
[2016-07-13] MEDS: PERCOCET 7.5-325 PO SCH ×2 (15:47→20:15)
[2016-07-13] MEDS ORDERED: K-DUR PO STA ×2 (16:27)
[2016-07-13] MEDS: ZANTAC PO SCH (17:32)
[2016-07-13] MEDS: PRIMAXIN 500 MG in SODIUM CHLORIDE 100 ML IV SCH ×2 (17:34→23:42)
[2016-07-13] MEDS: MUCINEX DM ER 600-30 MG TABLET PO SCH (20:15)
[2016-07-13] MEDS: MOTRIN PO PRN (20:53)
[2016-07-13] MEDS ORDERED: NON-FORMULARY MEDICATION (Ranitidine Hcl [Zantac] 300 MG) PO SCH ×22 (21:00)
[2016-07-14 05:44] LABS: BASOPHILS % (AUTO) 0.2 % (0.0-3.0); EOSINOPHILS # (AUTO) 0.1 K/ul (0.0-0.7); EOSINOPHILS % (AUTO) 1.2 % (0.0-7.0); HEMATOCRIT 32.9 % (37.0-47.0); LYMPHOCYTES % (AUTO) 16.6 (10.0-50.0); MEAN CORPUSCULAR HEMOGLOBIN 37.6 pg (27.0-31.0); MEAN CORPUSCULAR HGB CONC 36.5 (31.8-35.4); MEAN CORPUSCULAR VOLUME 103.1 fl (81.0-99.0); MONOCYTES # (AUTO) 1.3 K/uL (0.4-2.0); NEUTROPHILS # (AUTO) 8.4 K/ul (2.0-6.9); PLATELET COUNT 117 10^3/uL (140-440); RED BLOOD COUNT 3.19 10^6/ul (4.20-5.40); WHITE BLOOD COUNT 12.14 K/ul (4.6-10.2)
[2016-07-14] MEDS: ZANTAC PO SCH ×2 (05:47→16:39)
[2016-07-14] MEDS: PRIMAXIN 500 MG in SODIUM CHLORIDE 100 ML IV SCH ×3 (05:48→17:31)
[2016-07-14 06:11] LABS: ALBUMIN 2.1 g/dL (3.4-5.0); ALBUMIN/GLOBULIN RATIO 0.68; ANION GAP 11.6; BILIRUBIN,TOTAL 1.68 mg/dL (0.00-1.20); BUN/CREATININE RATIO 10.76; CALCIUM 8.4 mg/dL (8.2-10.2); CREATININE 0.65 mg/dL (0.60-1.30); POTASSIUM 3.6 mmol/L (3.5-5.10); TOTAL PROTEIN 5.2 g/dL (6.4-8.2)
[2016-07-14] MEDS ORDERED: ROCEPHIN 1 GM in SODIUM CHLORIDE 100 ML IV SCH (09:00)
[2016-07-14] MEDS: PERCOCET 7.5-325 PO SCH ×3 (09:08→21:09)
[2016-07-14] MEDS: MUCINEX DM ER 600-30 MG TABLET PO SCH ×2 (09:08→21:08)
[2016-07-14] MEDS: NEURONTIN PO SCH ×3 (09:08→21:08)
[2016-07-14] MEDS: LOVENOX SUBCUT SCH (09:09)
[2016-07-14] MEDS: NICODERM 21 MG TD SCH (09:13)
[2016-07-14] MEDS: MOTRIN PO PRN (09:26)
--- NOTE | 2016-07-14 14:09 | PCM.PROG ---
Attending Provider: ATTENDING PROVIDER: Dr. AMANDA BENTON DATE OF SERVICE: 07/14/16 SUBJECTIVE: This 45 year old WHITE/ F was hospitalized 07/13/16. The patient was admitted from ER yesterday with left-sided acute pyelonephritis, upper respiratory infection and hypokalemia, severe. With IV potassium, the patient' s potassium was corrected. The patient had a fever of 102 early in the morning but is normal now. She is on Primaxin but says she is feeling better. She has some cough and flank pain but is much better. REVIEW OF SYSTEMS: CONSTITUTIONAL: No fever, no chills. ENDOCRINE: No weight loss or weight gain. HEENT: No sinus drainage, no sore throat. CVS: No angina symptoms. No CHF symptoms. No palpitations. No atypical chest pain for CAD. No shortness of breath. RESPIRATORY: No cough, no hemoptysis. GI: No melena. No abdominal pain. No nausea, no vomiting. : No hematuria. No polyuria. SKIN: No rash. No wounds. MUSCULOSKELETAL: No pain. ACTING INSTRUCTOR: No blackout, no dizziness. No headache. No double vision. PSYCHIATRIC: Not anxious; no depression. No suicidal thoughts. No homicidal thoughts. PHYSICAL EXAMINATION: GENERAL: Lying in bed in no distress. VITAL SIGNS: Temperature 98.6 F, Pulse 74, Respiratory Rate 18, BP 92/66, Pulse Ox 96% HEENT: Normocephalic, atraumatic. Mucosa is dry, pallor positive. NECK: No JVP, no carotid bruit. No lymphadenopathy. CARDIAC: S1, S2, no S3. No murmur, gallop or regurgitation. LUNGS: Decreased entry with some crackles. ABDOMEN: Soft, non-tender. Bowel sounds active. No rigidity, guarding or CVA tenderness. EXTREMITIES: No clubbing, cyanosis or edema. NEUROLOGIC: Awake, alert and oriented x3. LYMPHATIC: No palpable lymph nodes SKIN: Not dry. Intact. MUSCULOSKELETAL: No joint swelling. LAB REVIEW: 07/14/16 05:20 07/14/16 05:20 07/14/16 05:20: WBC 12.14 H D, RBC 3.19 L, Hgb 12.0, Hct 32.9 L, MCV 103.1 H, MCH 37.6 H, MCHC 36.5 H, RDW Coeff of Mee 14.1, Plt Count 117 L, Immature Gran % (Auto) 2.0, Neut % (Auto) 69.0, Lymph % (Auto) 16.6, [place] % (Auto) 11.0 H, Eos % (Auto) 1.2, Baso % (Auto) 0.2, Immature Gran # (Auto) 0.2, Neut # 8.4 H, Lymph # 2.0, [place] # 1.3, Eos # 0.1, Baso # 0.0, Sodium 138, Potassium 3.6, Chloride 107, Carbon Dioxide 23, Anion Gap 11.6, BUN 7, Creatinine 0.65, Estimated GFR (MDRD) 99.00, BUN/Creatinine Ratio 10.76, Glucose 120 H, Calcium 8.4, Total Bilirubin 1.68 H, AST 77 H D, ALT 42, Alkaline Phosphatase 204 H, Total Protein 5.2 L, Albumin 2.1 L, Globulin 3.1, Albumin/Globulin Ratio 0.68 ASSESSMENT: 1. LEFT-SIDED ACUTE PYELONEPHRITIS 2. UPPER RESPIRATORY INFECTION 3. SEVERE HYPOKALEMIA WHICH HAS RESOLVED PLAN: 1. Continue Primaxin 2. Awaiting blood culture and urine culture 3. Out of bed to chair 4. Activity as tolerated 5. Will follow the patent in daily rounds Plan and coordination of the patient's care discussed in the presence of Casting Machine Operator Automatic and nurse. CONDITION: Stable SCRIBED BY: LATA NICHOLE Shipping Agent scribed while in presence of service performed by Dr. AMANDA BENTON on 07/14/16 ([id number])
[2016-07-14] MEDS: SODIUM CHLORIDE 0.9%-KCL 20 MEQ 1,000 ML IV SCH (17:29)
[2016-07-15] MEDS: PRIMAXIN 500 MG in SODIUM CHLORIDE 100 ML IV SCH ×2 (00:23→05:07)
[2016-07-15] MEDS: ZANTAC PO SCH (06:05)
[2016-07-15 07:44] LABS: BASOPHILS % (AUTO) 0.2 % (0.0-3.0); EOSINOPHILS # (AUTO) 0.1 K/ul (0.0-0.7); EOSINOPHILS % (AUTO) 0.8 % (0.0-7.0); HEMATOCRIT 36.9 % (37.0-47.0); HEMOGLOBIN 13.2 g/dl (12.0-16.0); IMMATURE GRANULOCYTE % (AUTO) 1.4 % (0.0-5.0); LYMPHOCYTES # (AUTO) 2.5 K/uL (0.60-3.4); LYMPHOCYTES % (AUTO) 14.3 (10.0-50.0); MEAN CORPUSCULAR HEMOGLOBIN 37.5 pg (27.0-31.0); MEAN CORPUSCULAR HGB CONC 35.8 (31.8-35.4); MEAN CORPUSCULAR VOLUME 104.8 fl (81.0-99.0); MONOCYTES # (AUTO) 1.4 K/uL (0.4-2.0); NEUTROPHILS # (AUTO) 12.9 K/ul (2.0-6.9); NEUTROPHILS % (AUTO) 75.3; PLATELET COUNT 216 10^3/uL (140-440); RED BLOOD COUNT 3.52 10^6/ul (4.20-5.40)
[2016-07-15 08:09] LABS: ALBUMIN 2.5 g/dL (3.4-5.0); ALBUMIN/GLOBULIN RATIO 0.66; ANION GAP 13.9; BILIRUBIN,TOTAL 1.74 mg/dL (0.00-1.20); BUN/CREATININE RATIO 9.37; CREATININE 0.64 mg/dL (0.60-1.30); POTASSIUM 3.9 mmol/L (3.5-5.10); TOTAL PROTEIN 6.3 g/dL (6.4-8.2)
[2016-07-15] MEDS: NEURONTIN PO SCH (08:37)
[2016-07-15] MEDS: PERCOCET 7.5-325 PO SCH (08:37)
[2016-07-15] MEDS: MUCINEX DM ER 600-30 MG TABLET PO SCH (08:37)
[2016-07-15] MEDS: LOVENOX SUBCUT SCH (08:38)
[2016-07-15] MEDS: NICODERM 21 MG TD SCH (08:38)
[2016-07-15] MEDS: MOTRIN PO PRN (08:44)
[2016-07-15 10:21] VITALS: BP 99/61; TEMP 98.6
[2016-07-15] MEDS ORDERED: ROCEPHIN 1 GM in SODIUM CHLORIDE 100 ML IV SCH (12:00)
--- NOTE | 2016-07-19 15:26 | HP ---
DATE OF SERVICE: 07/13/16 REASON FOR HOSPITALIZATION: Abdominal pain and left flank pain. HISTORY OF PRESENT ILLNESS: The patient is a 45 year old female who was recently here in the emergency room on 07/06/[address] Valdez, 07/05/[address] Dos Santos both evaluated the patient. The patient did have white count on 07/06/16 of 11.25. Urine positive for nitrates and the leukocyte esterase. At that time urine cultures were done which showed the e-coli and the blood cultures came positive for e-coli on 07/06/16. At that time she was called and informed that she needs to come to the emergency room. She came to the emergency room and seen by Dr. Hopkins. Afebrile, WBC was 18,000 , urine was still showing the leukocyte esterase positive and CT scan of the abdomen and pelvis was done which showed the left sided acute pyelonephritis. At that time the patient is admitted to the hospital for IV antibiotics and steroids. Meanwhile the urine culture came positive e-coli and sensitive for the Rocephin. In review of the pyelonephritis the patient is started on the Primaxin. REVIEW OF SYSTEMS: CONSTITUTIONAL: No night sweats. No fatigue, malaise, lethargy. Fever and chills. HEENT: Eyes: No visual changes. No eye pain. No eye discharge. ENT: No runny nose. No epistaxis. No sinus pain. No sore throat. No odynophagia. No ear pain. No congestion. RESPIRATORY: No cough, no congestion. No hemoptysis. CARDIOVASCULAR: No angina symptoms. No CHF symptoms. No atypical chest pain for CAD. No palpitations. No shortness of breath. GASTROINTESTINAL: No abdominal pain. No nausea or vomiting. No diarrhea or constipation. No hematemesis. No hematochezia. Left sided flank pain. GENITOURINARY: No urgency. Burning and Frequency of urination. No dysuria. No hematuria. No obstructive symptoms. No discharge. No pain. No significant abnormal bleeding. MUSCULOSKELETAL: No musculoskeletal pain. No joint swelling. No arthritis. Back pain. NEUROLOGICAL: No headache. No neck pain. No syncope. No seizures. No dizziness. PSYCHIATRIC: Anxiety secondary to being in the hospital. No depression. No suicidal thoughts. No homicidal thoughts. SKIN: No rash. No lesions. No wounds. ENDOCRINE: No unexplained weight loss. No weight gain. HEMATOLOGIC/LYMPHATIC: No anemia. No purpura. No petechiae. No prolonged or excessive bleeding. No palpable lymph nodes. PERSONAL/FAMILY/SOCIAL HISTORY: The patient does smoke, no alcohol use. . Family history is significant for the cancer and heart problems. PAST MEDICAL/SURGICAL PROBLEMS: Hypertension History of migraine headaches History of pneumonia GERD History of pancreatitis UTI MEDICATIONS: Multivitamin Zantac Neurontin Oxycodone Ibuprofen Carafate ALLERGIES: Levaquin PHYSICAL EXAMINATION: VITAL SIGNS: Blood pressure 120/78, respiratory rate 16, heart rate 75 and temperature 98.1. HEENT: Head normocephalic, atraumatic. Eyes: Extraocular muscles are intact. Pupils are equal, round and reactive to light and accommodation. Ears: No lesions. Nose appeared normal. Throat: No exudate or erythema. Mucosa dry. NECK: Supple. No JVD, no carotid bruit. No lymphadenopathy or thyromegaly. LUNGS: Decreased and some basilar crackles. Percussion note normal. Chest symmetrical. HEART: S1, S2, no S3. No murmurs. No cyanosis or clubbing. No ascites. Pulses: Dorsalis pedis and posterior tibial pulses +1 to +2 both sides. ABDOMEN: Soft. Left sided severe tenderness positive. Bowel sounds active. No CVA tenderness. No mass felt. EXTREMITIES: No edema. Full range of motion of all extremities, equal. NEUROLOGIC: No focal deficit. Cranial nerves II through XII are grossly intact. No headache, no double vision or headache. SKIN: Not dry. Intact. Turgor - normal. LYMPHATIC: No palpable lymph nodes/no lymphedema. MUSCULOSKELETAL: Normal joints with no swelling. Muscle tone is normal. LABS: WBC 18.91, hgb 14.4, hct 38.4, plt count 129, D-dimer 2.20, ABG pH 7.506, pCO2 24.6, pO2 106, sodium 136, potassium 2.6, chloride 99, bicarb 24, BUN 9, creatinine 0.96 and total bilirubin 1.96. AST 50 and Alkaline phosphatase 208. ASSESSMENT: 1. Acute left sided pyelonephritis 2. UTI with e-coli 3. Bacteremia 4. Elevated bilirubin 5. DJD spine 6. Upper respiratory infection PLAN: 1. Admit patient to the regular floor 2. CBC and CMP today and daily 3. Cardiac enzymes and Troponin 4. IV fluids 5. Primaxin 6. Oxycodone 7. Out of bed to chair 8. Lovenox for the DVT prophylaxis. TIME SPENT: More than 65 minutes. MTDD
--- NOTE | 2016-07-19 15:55 | DS ---
DATE OF SERVICE: 07/15/16 FINAL DIAGNOSIS: 1. UTI, e-coli not ESBL 2. Bacteremia, e-coli not ESBL 3. Elevated white count from the bacteremia and the UTI 4. Status post Hypokalemia with is better 5. Elevated liver enzymes 6. History of pancreatitis 7. Hypertension 8. Headaches, migraine type 9. DJD spine 10. GERD 11. Chronic pain syndrome 12. Peripheral neuropathy DISCHARGE INSTRUCTIONS: Discharge the patient home. Continue home medications. Increase hydration and Probiotics. MEDICATIONS AT DISCHARGE: Neurontin Ibuprofen Multivitamin Oxycodone Zantac Sucralfate NEW PRESCRIPTIONS: Bactrim DS one tablet by mouth and twice a day for 7 days. DIET INSTRUCTIONS: Cardiac and healthy ACTIVITY: As tolerated. SMOKING: Stop smoking. DISEASE SPECIFIC EDUCATION: Advised to quit smoking Antibiotic use and diarrhea been discussed HOSPITAL COURSE: Fox. Puckett who is a 45 year old female came to the hospital as she was called that her labs are abnormal and she has to be admitted. The patient was upon entry in the emergency room on 07/05/16 and 07/06/16 for the same symptoms for which urine and blood cultures both grew e-coli which was sensitive to the e- coli. At that time the patient came to the hospital and her WBC was 18,000 and at that time the patient was admitted to the hospital and started on the Primaxin and the IV fluids. The patient started feeling a lot better and left sided flank pain is improving. Her potassium was 2.7 which was better with replacement of the IV potassium. Her AST and total bilirubin was elevated. The patient's CAT scan did show the pancreatic pseudocyst and the pancreatic cystic lesion so I assumed that her elevated liver enzymes and there wasn't any gallbladder stones. Hepatic steatosis was present which was described to the patient and she verbalized understanding. The patient today was verbal and she wanted to go and says that she doesn't want to stay anymore here. Tried to explain that with the bacteremia she has to be on antibiotics for at least 14 days totals but the patient has been responding well to the IV antibiotics so I requested that staying in the hospital is better to get longer IV antibiotics but she refused and tearful saying she wanted to go as can dependant to go to the [facility]. Explain that she can be on oral antibiotic but it is not suggested. Patient said that she is not feeling better and things getting worse she will come back to the emergency room. TIME SPENT: More than 45 minutes. SANJUANA
== END 2016-07-15 13:29 | disposition home or self-care (01) | DRG 690 ==
LOC: ED 11:34 → MEDSURG A 14:14
PROVIDERS: ADMIT Emergency Medicine; ATTEND Emergency Medicine
DX: N39.0 Urinary tract infection, site not specified (principal); R78.81 Bacteremia; K86.2 Cyst of pancreas; N10 Acute pyelonephritis; E87.6 Hypokalemia; J06.9 Acute upper respiratory infection, unspecified; B96.20 Unspecified Escherichia coli [E. coli] as the cause of diseases classified elsewhere; R74.8 Abnormal levels of other serum enzymes; I10 Essential (primary) hypertension; K21.9 Gastro-esophageal reflux disease without esophagitis; G89.4 Chronic pain syndrome; M47.9 Spondylosis, unspecified; G62.9 Polyneuropathy, unspecified; F17.210 Nicotine dependence, cigarettes, uncomplicated; R10.9 Unspecified abdominal pain; Z87.19 Personal history of other diseases of the digestive system; Z79.899 Other long term (current) drug therapy
CPT/HCPCS: 36415; 80053; 81001; 81025; 82150; 82803; 83690; 83880; 85025; 85379; 87040; 87086; 93005; 93010; 96365; 99223; 99233; 99239; 99284

== ENCOUNTER 2016-07-31 11:59 | Outpatient (CLI) ==
[2016-07-31 13:48] LABS: BASOPHILS # (AUTO) 0.1 K/uL (0-0.2); EOSINOPHILS # (AUTO) 0.1 K/ul (0.0-0.7); HEMATOCRIT 41.8 % (37.0-47.0); HEMOGLOBIN 14.1 g/dl (12.0-16.0); IMMATURE GRANULOCYTE % (AUTO) 0.5 % (0.0-5.0); LYMPHOCYTES # (AUTO) 2.6 K/uL (0.60-3.4); LYMPHOCYTES % (AUTO) 23.7 (10.0-50.0); MEAN CORPUSCULAR HEMOGLOBIN 36.1 pg (27.0-31.0); MEAN CORPUSCULAR HGB CONC 33.7 (31.8-35.4); MEAN CORPUSCULAR VOLUME 106.9 fl (81.0-99.0); MONOCYTES % (AUTO) 9.4 (0-10); NEUTROPHILS % (AUTO) 64.4; PLATELET COUNT 418 10^3/uL (140-440); RED BLOOD COUNT 3.91 10^6/ul (4.20-5.40); WHITE BLOOD COUNT 10.93 K/ul (4.6-10.2)
[2016-07-31 13:55] LABS: BILIRUBIN,URINE 1+ (NEGATIVE); KETONES,URINE Negative (NEGATIVE); LEUKOCYTE ESTERASE ,URINE 2+ (NEGATIVE); NITRITE,URINE Negative (NEGATIVE); PROTEIN,URINE 1+ (NEGATIVE); URINE, BLOOD Trace-lysed (NEGATIVE)
[2016-07-31 13:59] LABS: ADD URINE MICROSCOPIC YES
[2016-07-31 14:00] LABS: BACTERIA,URINE 1+ (NOT PRESENT)
[2016-07-31 14:07] LABS: ALBUMIN 3.4 g/dL (3.4-5.0); ALBUMIN/GLOBULIN RATIO 0.76; ANION GAP 15.5; BILIRUBIN,TOTAL 0.63 mg/dL (0.00-1.20); BUN/CREATININE RATIO 8.1; CALCIUM 9.6 mg/dL (8.2-10.2); CREATININE 0.74 mg/dL (0.60-1.30); POTASSIUM 3.5 mmol/L (3.5-5.10); TOTAL PROTEIN 7.9 g/dL (6.4-8.2)
== END 2016-07-31 12:00 | disposition home or self-care (01) ==
LOC: LAB 11:59
PROVIDERS: ATTEND Nurse Practitioner Family
DX: Z09 Encounter for follow-up examination after completed treatment for conditions other than malignant neoplasm (principal); R53.1 Weakness; R53.83 Other fatigue
CPT/HCPCS: 36415; 80053; 81001; 85025; 87086

== ENCOUNTER 2016-08-01 06:57 | Outpatient (CLI) ==
--- NOTE | 2016-08-01 11:09 | MRI ---
EXAM: Lumbar spine MRI without contrast. HISTORY: Disease of the musculoskeletal system and connective tissues. COMPARISON: Lumbar spine CT scan 01/30/2015, CT chest, abdomen and pelvis 07/13/2016 and MRI abdome n 05/02/2014. TECHNIQUE: Multiplanar, multisequence MR images were acquired of the lumbar spine without contrast. FINDINGS: Transitional lumbar spinal anatomy is present. For the purposes of this dictation, the l ast normal rib-bearing vertebra is numbered T12 and at L1, there is an articulating right transverse process. There are six lumbar vertebra. The lumbar vertebra are normal in height and intrinsic terry ne marrow signal. Alignment is near anatomic. There is 1 mm retrolisthesis of L5 on S1. There is minor lumbar ventral spondylosis and there is osteophytosis with disc space narrowing and disc desic cation at L5-6 and L6-S1. There is mild irregular concavity of the endplates in the lower thoracic and lumbar spine with small chronic Schmorl's nodes at T11 and T12. Conus medullaris ends at L1-2 a nd has normal signal intensity. Canal diameter is developmentally narrow. The visualized liver, spleen and adrenal glands are unremarkable. There is a partially visualized w ell-circumscribed 3.3 cm x 3.0 cm cystic lesion in the pancreatic head. This is unchanged from prio r studies and likely represents a pancreatic pseudocyst. No peripancreatic soft tissue stranding is present to suggest active pancreatitis. The right kidney is unremarkable. The left kidney has a p artially visualized lobular cystic lesion with a rim of dark T2 signal that measures 4.4 cm CC by at least 3.7 cm TX. This has hypointense T1, bright T2 signal centrally and hazy indistinct margins w ith minor perinephric soft tissue stranding. This is unchanged compared to the recent CT from 07/13 but is new compared to previous MRI of the abdomen. CT with and without contrast of the [facility] would be helpful to better define the anatomy. L1-2: The intervertebral disc is normal. There is no central canal stenosis or foraminal stenosis. L2-3: The intervertebral disc is normal. L3-4: There is a minor disc bulge with a more focal left paracentral disc osteophyte component that mildly effaces the anterior subarachnoid space. In this patient with a developmentally narrow alok l and prominent dorsal epidural fat, this causes mild spinal stenosis. AP diameter of the thecal sa c is 9.3 mm. L4-5: There is a minimal disc bulge that is considered physiologic without central canal stenosis o r foraminal stenosis. L5-6: There is a mild disc bulge and a small broad-based central/right posterolateral disc protrusi on that mildly effaces the right anterior subarachnoid space and encroaches on the right L6 nerve ro ots. It may also contact the left L6 nerve roots. There is mild spinal stenosis and minor bilatera l foraminal stenosis. AP diameter of the thecal sac is 8.4 mm. L6-S1: There is a small posterior disc bulge that is asymmetric right posteriorly which mildly effa gayle the right lateral recess and posteriorly displaces the right S1 nerve. There is mild right and minor left neural foraminal stenosis. IMPRESSION: 1. Minor lumbar degenerative spondylosis with mild spinal stenosis at L3-4 and L5-6. 2. Small broad-based central/right posterolateral disc protrusion L5-6 that encroaches on the right L6 nerve roots. 3. Small right posterior disc bulge L6-S1 that encroaches on the right S1 nerve. 4. No change 3.3 cm x 3 cm probable pancreatic pseudocyst in the pancreatic head. 5. Unexpected result. Partially visualized lobular 4.4 cm CC by 3.7 cm TX left renal cystic lesion with minor perinephric soft tissue stranding. Clinical considerations include a complex cyst or ab scess. Further evaluation is advised and dedicated renal CT or MRI with and without contrast can be done. 6. Transitional spinal anatomy. Six lumbar vertebra are present.
== END 2016-08-01 06:58 | disposition home or self-care (01) ==
LOC: RAD 06:57
PROVIDERS: ATTEND Nurse Practitioner Family
DX: M54.10 Radiculopathy, site unspecified (principal); Z87.39 Personal history of other diseases of the musculoskeletal system and connective tissue

== ENCOUNTER 2016-08-08 08:56 | Outpatient (CLI) ==
--- NOTE | 2016-08-08 10:44 | CT ---
EXAM: CT abdomen pelvis with and without contrast HISTORY: Disorder of kidney and ureter, unspecified, left renal cystic lesion described on MRI COMPARISON: MRI 08/01/2016 TECHNIQUE: CT abdomen pelvis performed with and without intravenous contrast. Coronal and sagittal images obtained. Excretory phase images obtained. FINDINGS: There is a 2 mm nonobstructing right renal calculus and several 1 - 2 mm nonobstructing left renal c alculi. No hydronephrosis. There is a lobulated peripherally enhancing fluid collection centered a bout the left inferior kidney and extending exophytically, measuring 3.3 x 3.5 cm with mild surround ing stranding. Bladder unremarkable. Mild dependent density at the lung bases. No free air. No acute abnormalities of the bones. Mild degenerative change in the spine. Heart normal in size. Liver diffusely decreased in attenuation. Gallbladder appears normal. There is redemonstration of a cystic lesion in the pancreatic head armando t measures 3.0 cm, unchanged. The pancreas is otherwise unremarkable. Spleen unremarkable. Adren als appear normal. Aorta normal in caliber. Mild atherosclerosis. Stomach appears normal. No dil ated loops small bowel. Appendix appears normal. Colon unremarkable. Uterus unremarkable. No lym phadenopathy or ascites. Small fat-containing umbilical hernia. IMPRESSION: 1. 3.5 cm lobulated peripherally enhancing fluid collection centered about the left inferior kidney and extending exophytically, with mild surrounding stranding. This most likely represents a renal abscess. Cystic renal neoplasm is not excluded, though considered less likely. Further evaluation/f ollow-up recommended. 2. Bilateral nephrolithiasis. No hydronephrosis. 3. 3.0 cm cystic lesion pancreatic head. This is favored to represent a pancreatic pseudocyst give n the prior history of pancreatitis, though other etiologies not excluded. Recommend follow-up and/ or MRI with contrast for further evaluation 4. Hepatic steatosis.
== END 2016-08-08 08:57 | disposition home or self-care (01) ==
LOC: RAD 08:56
PROVIDERS: ATTEND Nurse Practitioner Family
DX: N28.9 Disorder of kidney and ureter, unspecified (principal)
CPT/HCPCS: 74178

== ENCOUNTER 2016-11-12 15:03 | Emergency (ER) ==
[2016-11-12 15:11] VITALS: BP 157/98; TEMP 98.2; BMI 24.5
--- NOTE | 2016-11-12 15:31 | ED.PDOC ---
General ED Provider: Dr. GILMA GONSALEZ JR Chief Complaint: Toe Pain/Injury Stated Complaint: Constant since the first october. Lump appeared yesterday. [ End ]3 toes (right) swollen, numb and tingling. Ongoing. 98.2 73 20 97% 157/ 98 4/10 percocet PANCREATITIS/chronic back pain and spinal stenosis/patient sees pain manage Presents to the ED with c/o right great toe, 1st and 2nd toe pain, swelling. Ongoing since october. Concerned because a "lump" appeared this am.[ End ] Time Seen by Physician: 15:31 Mode of Arrival: Walk-In Information Source: Patient Exam Limitations: No limitations Primary Care Provider: [facility]ANDA [facility] and Triage Documentation Reviewed and Agree: No Review of Systems - Review Of Systems Constitutional: Reports: No symptoms Eyes: Reports: No symptoms Ears, Nose, Mouth, Throat: Reports: No symptoms Respiratory: Reports: No symptoms Cardiac: Reports: No symptoms GI: Reports: No symptoms : Reports: No symptoms Musculoskeletal: Reports: Other (right foot pain with radicular pain and numbness down right leg) Skin: Reports: No symptoms Neurological: Reports: Numbness, Tingling Endocrine: Reports: No symptoms Hematologic/Lymphatic: Reports: No symptoms All Other Systems: Other Past Medical History - Past Medical History Endocrine: Reports: None Cardiovascular: Reports: None Respiratory: Reports: None Hematological: Reports: None Gastrointestinal: Reports: Pancreatitis Genitourinary: Reports: None Neuro/Psych: Reports: Other (CERVICAL STENOSIS- NECK) Musculoskeletal: Reports: None, Back Pain (chronic back pain) Cancer: Reports: None Last Menstrual Period: 2009 - Surgical History General Surgical History: Reports: None - Family History Family History: Reports: Unknown - Social History Smoking Status: Current every day smoker Hx Substance Use: No Alcohol Screening: Occasionally - Immunizations Tetanus Shot up to Date: Yes Physical Exam - Physical Exam Appearance: Ill-appearing Pain Distress: Moderate Eyes: RADHA, EOMI, Conjunctiva clear ENT: Ears normal, Nose normal, Oropharynx normal Neck: Supple Respiratory: Airway patent, Breath sounds clear, Breath sounds equal, Respirations nonlabored Cardiovascular: RRR, Pulses normal, No rub, No murmur GI/: Soft, Nontender, No masses, Bowel sounds normal, No Organomegaly Musculoskeletal: Normal strength, ROM intact, No edema, No calf tenderness Skin: Warm, Dry, Normal color Neurological: Alert, Oriented Psychiatric: Anxious Critical Care Note - Critical Care Note Total Time (mins): 0 Course - Course Hematology/Chemistry: 11/12/16 15:42 11/12/16 15:42 Orders, Labs, Meds: Lab Review 11/12/16 15:42 WBC 5.95 RBC 3.51 L Hgb 13.7 Hct 38.4 MCV 109.4 H MCH 39.0 H MCHC 35.7 H RDW Coeff of Mee 13.6 Plt Count 155 Immature Gran % (Auto) 0.2 Neut % (Auto) 64.2 Lymph % (Auto) 27.9 [place] % (Auto) 6.2 Eos % (Auto) 1.0 Baso % (Auto) 0.5 Immature Gran # (Auto) 0.0 Neut # 3.8 Lymph # 1.7 [place] # 0.4 Eos # 0.1 Baso # 0.0 Sodium 141 Potassium 3.3 L Chloride 109 H Carbon Dioxide 21 Anion Gap 14.3 BUN 8 Creatinine 0.74 Estimated GFR (MDRD) 84.00 BUN/Creatinine Ratio 10.81 Glucose 83 Uric Acid 4.6 Calcium 9.2 Total Bilirubin 1.16 AST 52 H ALT 49 Alkaline Phosphatase 109 H Total Protein 6.5 Albumin 3.7 Globulin 2.8 Albumin/Globulin Ratio 1.32 Orders Category Date Time Status CBC W/ AUTO DIFF Stat LAB 11/12/16 15:42 Completed COMPREHENSIVE METABOLIC PANEL Stat LAB 11/12/16 15:42 Completed URIC ACID Stat LAB 11/12/16 15:42 Completed FOOT, RIGHT 3 VIEWS Stat RADS 11/12/16 15:19 Taken Vital Signs: Temp Pulse Resp BP Pulse Ox 11/12/16 15:04 98.2 F 73 20 157/98 H 97 Departure - Departure Time of Disposition: 16:21 Disposition: HOME SELF-CARE Discharge Problem: Foot pain, right Instructions: Arthralgia (ED) Condition: Good Pt referred to PMD for follow-up: Yes Additional Instructions: note chronic increase in MCV discuss hematology with PMD- note B12 and FOLIC ACID were normal in past consider NEUROLOGY evaluation for right leg pain no evidence of fracture- elevate foot 2-4 hours twice a dya continue usual medications may double gabipentin dose(check with pain management BEFORE changing dose) would not use opiates every day- better effect if skip or taper doses recheck PMD one week check xray report repeat films if not resolving Prescriptions: Gabapentin [Neurontin] 400 mg PO TID PRN #90 capsule PRN Reason: pain Allergies/Adverse Reactions: Allergies levofloxacin [From Levaquin] Adverse Reaction (Unverified 11/12/16 15:17) sulfamethoxazole [From Bactrim] Adverse Reaction (Verified 11/12/16 15:17) trimethoprim [From Bactrim] Adverse Reaction (Verified 11/12/16 15:17) levofloxacin Adverse Reaction (Uncoded 11/12/16 15:17) Home Medications: Ambulatory Orders Multivitamin [Multi-Vitamin Daily] 1 tab PO DAILY 09/25/13 Gabapentin 200 mg PO TID 06/20/16 Oxycodone HCl/Acetaminophen [Oxycodon-Acetaminophen 7.5-325] 1 each PO TID 06/20 Ibuprofen 800 mg PO BID PRN 07/05/16 Sucralfate [Carafate] 1 gm PO PRN PRN 07/05/16 Gabapentin [Neurontin] 400 mg PO TID PRN #90 capsule 11/12/16
[2016-11-12 15:45] LABS: BASOPHILS % (AUTO) 0.5 % (0.0-3.0); EOSINOPHILS # (AUTO) 0.1 K/ul (0.0-0.7); HEMATOCRIT 38.4 % (37.0-47.0); HEMOGLOBIN 13.7 g/dl (12.0-16.0); IMMATURE GRANULOCYTE % (AUTO) 0.2 % (0.0-5.0); LYMPHOCYTES # (AUTO) 1.7 K/uL (0.60-3.4); LYMPHOCYTES % (AUTO) 27.9 (10.0-50.0); MEAN CORPUSCULAR HGB CONC 35.7 (31.8-35.4); MEAN CORPUSCULAR VOLUME 109.4 fl (81.0-99.0); MONOCYTES # (AUTO) 0.4 K/uL (0.4-2.0); MONOCYTES % (AUTO) 6.2 (0-10); NEUTROPHILS # (AUTO) 3.8 K/ul (2.0-6.9); NEUTROPHILS % (AUTO) 64.2; PLATELET COUNT 155 10^3/uL (140-440); RED BLOOD COUNT 3.51 10^6/ul (4.20-5.40); WHITE BLOOD COUNT 5.95 K/ul (4.6-10.2)
[2016-11-12 16:05] LABS: ALBUMIN 3.7 g/dL (3.4-5.0); ALBUMIN/GLOBULIN RATIO 1.32; ANION GAP 14.3; BILIRUBIN,TOTAL 1.16 mg/dL (0.00-1.20); BUN/CREATININE RATIO 10.81; CALCIUM 9.2 mg/dL (8.2-10.2); CREATININE 0.74 mg/dL (0.60-1.30); POTASSIUM 3.3 mmol/L (3.5-5.10); TOTAL PROTEIN 6.5 g/dL (6.4-8.2); URIC ACID 4.6 mg/dL (2.4-6.0)
--- NOTE | 2016-11-12 20:09 | DI ---
EXAM: Right foot, three views HISTORY: Swelling COMPARISON: None. FINDINGS: The alignment is normal. Joint spaces appear normal. No fracture is identified. Mild s oft tissue swelling seen lateral aspect of the foot adjacent to the fifth metatarsal. IMPRESSION: No fracture or dislocation is identified.
== END 2016-11-12 17:00 | disposition home or self-care (01) ==
LOC: ED 15:03
DX: M79.671 Pain in right foot (principal); R20.0 Anesthesia of skin; F17.210 Nicotine dependence, cigarettes, uncomplicated
CPT/HCPCS: 36415; 80053; 84550; 85025; 99282

== ENCOUNTER 2016-11-27 14:32 | Outpatient (CLI) ==
--- NOTE | 2016-11-29 08:33 | MAMMO ---
EXAM: Bilateral digital screening mammogram History: Screening Comparison: Bilateral mammogram 11/23/2015 Findings: MLO and CC views of bilateral breasts demonstrate predominately fatty replaced breast par enchyma. Stable benign bilateral intramammary lymph nodes. There are no dominant masses, no suspicio us microcalcifications and no architectural distortions Impression: Benign stable mammogram. Recommend followup routine screening mammography in 1 year. BIRADS 2
== END 2016-11-27 14:33 | disposition home or self-care (01) ==
LOC: RAD 14:32
PROVIDERS: ATTEND Nurse Practitioner Family
DX: Z12.31 Encounter for screening mammogram for malignant neoplasm of breast (principal)

== ENCOUNTER 2017-03-10 10:53 | Emergency (ER) ==
[2017-03-10 11:02] VITALS: BP 167/74; TEMP 98.5; BMI 25.0
--- NOTE | 2017-03-10 11:26 | ED.PDOC ---
General ED Provider: Dr. JEANCARLOS COATS Chief Complaint: Back Pain Stated Complaint: Flare up of chronic right back pain with severe sciatica x 1 week. No known trauma. PMH of chronic neck and back pain secondary to herniated disks in spine. Seeing a pain clinic. Appointment with PCP in 3 days. Minimal relief from Percocet. Requesting po steroids "for 2 weeks" because that's what worked before." Time Seen by Physician: 11:21 Mode of Arrival: Walk-In Information Source: Patient Exam Limitations: No limitations Primary [facility] Provider[facility] Nursing and Triage Documentation Reviewed and Agree: Yes Musculoskeletal Complaint Exam - Back Pain Complaint/Exam Mechanism of Injury: Reports: No known trauma Onset/Duration: 1 week Symptoms Are: Still present Timing: Constant Initial Severity: Moderate Current Severity: Severe Location: Reports: Radiating (down lateral right leg to knee) Character: Reports: Sharp (sciatica is sharp pain), Aching, Throbbing Aggravating: Reports: Movements, Lifting, Bending, Walking Alleviating: Reports: None Associated Signs and Symptoms: Reports: Pain with weight bearing Related History: Reports: Similar episode (previous flare ups of chronic back pain) TAD Risk Factors: Reports: Smoking AAA Risk Factors: Reports: Smoking Cauda Equina Risk Factors: Reports: None Epidural Abcess Risk Factors: Reports: None Related Surgical History: Reports: None Focal Tenderness: No Paraspinal Muscle Tenderness: No Paraspinal Muscle Spasm: No Scoliosis: No Lordosis: No Kyphosis: No SLR Test: Right Positive (at 45 degrees), Left Negative Hip Motion Testing Pain: Right Negative, Left Negative Focal Weakness: Present: None Focal Sensory Loss: Present: None Gait: Present: Unsteady Differential Diagnoses: Herniated Disk (with right sciatica) Review of Systems - Review Of Systems Constitutional: Reports: No symptoms Respiratory: Reports: No symptoms Cardiac: Reports: No symptoms GI: Reports: No symptoms : Reports: No symptoms Musculoskeletal: Reports: Back pain, Muscle pain Skin: Reports: No symptoms Neurological: Reports: Other (right sciatica) All Other Systems: Reviewed and Negative Past Medical History - Past Medical History Endocrine: Reports: None Cardiovascular: Reports: None Respiratory: Reports: None Hematological: Reports: None Gastrointestinal: Reports: Pancreatitis Genitourinary: Reports: None Neuro/Psych: Reports: Other (CERVICAL STENOSIS- NECK) Musculoskeletal: Reports: None, Back Pain (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) Cancer: Reports: None Last Menstrual Period: menopause - Surgical History General Surgical History: Reports: None - Family History Family History: Reports: Unknown - Social History Smoking Status: Current every day smoker Hx Substance Use: No Alcohol Screening: Occasionally Lives: Alone - Immunizations Tetanus Shot up to Date: No Influenza Vaccine within 12 Months: No Pneumococcal Vaccine up to Date: No Physical Exam - Physical Exam Appearance: Well-appearing, Well-nourished Ill-appearing: None Pain Distress: Severe Musculoskeletal: Normal strength, No edema, No calf tenderness, Limited ROM (can 't flex right hip without increasing right leg sciatica) Skin: Warm, Dry, Normal color Neurological: Sensation intact, Motor intact, Reflexes intact, Cranial nerves intact, Alert, Oriented Psychiatric: Affect appropriate, Mood appropriate Critical Care Note - Critical Care Note Total Time (mins): 0 Course - Course Orders, Labs, Meds: Orders Category Date Time Status Ketorolac Tromethamine [Toradol] MEDS 03/10/17 11:37 Discontinued 60 mg IM ONCE STA Methylprednisolone Sod Succ/Pf [Solu-Medrol 125 mg] MEDS 03/10/17 11:36 Discontinued 125 mg IM ONCE STA Medications Discontinued Medications Generic Name Dose Route Start Last Admin Trade Name Dawna PRN Reason Stop Dose Admin Ketorolac Tromethamine 60 mg 03/10/17 11:37 03/10/17 11:52 Toradol IM 03/10/17 11:38 60 mg ONCE STA Administration Methylprednisolone Sodium Succinate 125 mg 03/10/17 11:36 03/10/17 11:51 Solu-Medrol 125 Mg IM 03/10/17 11:37 125 mg ONCE STA Administration Vital Signs: Temp Pulse Resp BP Pulse Ox 03/10/17 10:59 98.5 F 66 20 167/74 H 98 Departure - Departure Time of Disposition: 12:19 Disposition: HOME SELF-CARE Discharge Problem: Low back pain with right-sided sciatica Qualifiers: Chronicity: acute Back pain laterality: right Qualified Code(s): M54.41 - Lumbago with sciatica, right side Instructions: Sciatica (ED) Condition: Good Pt referred to PMD for follow-up: Yes (follow up with doctor as planned) Additional Instructions: Take prednisone 10 mg po daily in tapering dose: 7 pills days 1&2, 6 pills days 3&4, etc until gone. Allergies/Adverse Reactions: Allergies levofloxacin [From Levaquin] Adverse Reaction (Verified 03/10/17 11:03) sulfamethoxazole [From Bactrim] Adverse Reaction (Verified 03/10/17 11:03) trimethoprim [From Bactrim] Adverse Reaction (Verified 03/10/17 11:03) levofloxacin Adverse Reaction (Uncoded 11/12/16 15:17) Home Medications: Ambulatory Orders Multivitamin [Multi-Vitamin Daily] 1 tab PO DAILY 09/25/13 Oxycodone HCl/Acetaminophen [Oxycodon-Acetaminophen 7.5-325] 1 each PO TID 06/20 Ibuprofen 800 mg PO BID PRN 07/05/16 Sucralfate [Carafate] 1 gm PO PRN PRN 07/05/16 Gabapentin [Neurontin] 300 mg PO QID PRN 03/10/17 Disposition Discussed With: Patient
[2017-03-10] MEDS: SOLU-MEDROL 125 MG IM STA (11:51)
[2017-03-10] MEDS: TORADOL IM STA (11:52)
== END 2017-03-10 12:45 | disposition home or self-care (01) ==
LOC: ED 10:53
DX: M54.41 Lumbago with sciatica, right side (principal); F17.210 Nicotine dependence, cigarettes, uncomplicated
CPT/HCPCS: 96372; 99283

== ENCOUNTER 2017-04-20 22:14 | Inpatient (IN) ==
[2017-04-20] MEDS ORDERED: DILAUDID 1 MG/ML SYRINGE IVP PRN (22:54)
[2017-04-20] MEDS ORDERED: SODIUM CHLORIDE 1,000 ML IV STA (22:54)
[2017-04-20] MEDS ORDERED: ZOFRAN 4 MG/2 ML IVP STA (22:55)
[2017-04-20 23:25] LABS: BASOPHILS % (AUTO) 0.1 % (0.0-3.0); EOSINOPHILS % (AUTO) 0.2 % (0.0-7.0); HEMATOCRIT 39.5 % (37.0-47.0); IMMATURE GRANULOCYTE % (AUTO) 0.3 % (0.0-5.0); LYMPHOCYTES # (AUTO) 2.4 K/uL (0.60-3.4); LYMPHOCYTES % (AUTO) 20.1 (10.0-50.0); MEAN CORPUSCULAR HEMOGLOBIN 38.1 pg (27.0-31.0); MEAN CORPUSCULAR HGB CONC 35.4 (31.8-35.4); MEAN CORPUSCULAR VOLUME 107.6 fl (81.0-99.0); MONOCYTES # (AUTO) 0.9 K/uL (0.4-2.0); MONOCYTES % (AUTO) 7.6 (0-10); NEUTROPHILS # (AUTO) 8.5 K/ul (2.0-6.9); NEUTROPHILS % (AUTO) 71.7; PLATELET COUNT 159 10^3/uL (140-440); RED BLOOD COUNT 3.67 10^6/ul (4.20-5.40); WHITE BLOOD COUNT 11.77 K/ul (4.6-10.2)
[2017-04-20] MEDS: DILAUDID 2 MG/ML SYRINGE ONE (23:27)
[2017-04-20 23:48] LABS: BILIRUBIN,URINE 1+ (NEGATIVE); KETONES,URINE Negative (NEGATIVE); LEUKOCYTE ESTERASE ,URINE Negative (NEGATIVE); NITRITE,URINE Negative (NEGATIVE); PROTEIN,URINE Negative (NEGATIVE); URINE, BLOOD Negative (NEGATIVE)
[2017-04-20 23:50] LABS: ALANINE AMINOTRANSFERASE 31 U/L (12-78); ALBUMIN 3.3 g/dL (3.4-5.0); ALBUMIN/GLOBULIN RATIO 1.22; ALKALINE PHOSPHATASE 72 U/L (42-98); AMYLASE 122 U/L (25-115); ANION GAP 14.9; ASPARTATE AMINO TRANSFERASE 27 U/L (15-37); BILIRUBIN,TOTAL 0.85 mg/dL (0.00-1.20); BLOOD UREA NITROGEN 16 mg/dL (7-18); BUN/CREATININE RATIO 24.24; CALCIUM 8.8 mg/dL (8.2-10.2); CARBON DIOXIDE 23 mmol/L (21-32); CHLORIDE 102 mmol/L (98-107); CREATINE KINASE 22 U/L; CREATININE 0.66 mg/dL (0.60-1.30); GLUCOSE 117 mg/dL (70-110); LIPASE 440 U/L (8-78); POTASSIUM 2.9 mmol/L (3.5-5.10); SODIUM 137 mmol/L (136-145)
[2017-04-20 23:57] LABS: ADD URINE MICROSCOPIC YES
--- NOTE | 2017-04-20 23:58 | CT ---
EXAM: CT of the abdomen and pelvis without contrast. HISTORY: Upper abdominal pain and bloating. HISTORY: Pancreatitis. PROCEDURE: Contiguous axial CT images of the abdomen and pelvis without contrast with coronal and sa gittal reformats. FINDINGS: Comparison made with CT of 07/13/2016. The liver, gallbladder, spleen and adrenal glands a re normal in appearance. There is a stable fluid density cyst in the head of the pancreas measuring 3 .3 x 3.1 cm. There is peripancreatic inflammatory stranding and edema consistent with acute pancreat itis. There are nonobstructive calcifications in both kidneys. The abdominal aorta is within normal limits in diameter. The visualized loops of bowel and appendix are normal in appearance. No free flu id or free air in the abdomen or pelvis. The bladder is minimally filled with no abnormality identifi ed. The uterus is unremarkable. The bones and soft tissues are unremarkable. Impression: Peripancreatic inflammatory stranding and edema consistent with acute pancreatitis. Richard mmend correlation with amylase and lipase levels. Stable 3.3 x 3.1 cm fluid density cyst in the head of the pancreas consistent with a pseudocyst. Nonobstructive bilateral nephrolithiasis.
[2017-04-21] LABS: ANISOCYTOSIS 1+ (NOT PRESENT)
[2017-04-21 00:08] LABS: ERYTHROCYTE SEDIMENTATION RATE 4 mm/hr (0-20); ESR INTERNAL QC INTERNAL QC VALID
[2017-04-21] MEDS ORDERED: POTASSIUM CHLORIDE PREMIX RUN 40 MEQ in PREMIX 100 ML WATER 2 BAG IV STA (00:37)
[2017-04-21] MEDS ORDERED: SODIUM CHLORIDE 1,000 ML IV STA (00:42)
[2017-04-21] MEDS ORDERED: POTASSIUM CHLORIDE PREMIX RUN 200 ML IV ONE (00:43)
[2017-04-21] MEDS: DILAUDID 2 MG/ML SYRINGE ONE ×2 (00:49→05:39)
[2017-04-21] MEDS ORDERED: DILAUDID 2 MG/ML SYRINGE ONE (02:53)
[2017-04-21 05:32] LABS: BASOPHILS % (AUTO) 0.1 % (0.0-3.0); EOSINOPHILS % (AUTO) 0.3 % (0.0-7.0); HEMATOCRIT 39.3 % (37.0-47.0); HEMOGLOBIN 13.8 g/dl (12.0-16.0); IMMATURE GRANULOCYTE % (AUTO) 0.4 % (0.0-5.0); LYMPHOCYTES % (AUTO) 20.2 (10.0-50.0); MEAN CORPUSCULAR HEMOGLOBIN 38.8 pg (27.0-31.0); MEAN CORPUSCULAR HGB CONC 35.1 (31.8-35.4); MEAN CORPUSCULAR VOLUME 110.4 fl (81.0-99.0); MONOCYTES # (AUTO) 0.9 K/uL (0.4-2.0); MONOCYTES % (AUTO) 8.8 (0-10); NEUTROPHILS # (AUTO) 6.9 K/ul (2.0-6.9); NEUTROPHILS % (AUTO) 70.2; PLATELET COUNT 160 10^3/uL (140-440); RED BLOOD COUNT 3.56 10^6/ul (4.20-5.40); WHITE BLOOD COUNT 9.86 K/ul (4.6-10.2)
[2017-04-21 05:33] LABS: ANISOCYTOSIS 1+ (NOT PRESENT)
[2017-04-21 05:52] LABS: ALBUMIN 3.1 g/dL (3.4-5.0); ALBUMIN/GLOBULIN RATIO 1.19; ANION GAP 9.6; BILIRUBIN,TOTAL 0.96 mg/dL (0.00-1.20); BUN/CREATININE RATIO 18.33; CALCIUM 8.3 mg/dL (8.2-10.2); CREATININE 0.6 mg/dL (0.60-1.30); POTASSIUM 3.6 mmol/L (3.5-5.10); TOTAL PROTEIN 5.7 g/dL (6.4-8.2)
--- NOTE | 2017-04-21 06:25 | ED.PDOC ---
General ED Provider: Dr. KEO WILLOUGHBY-ER Chief Complaint: Abdominal Pain Stated Complaint: i have pancreatitis Time Seen by Physician: 22:20 Mode of Arrival: Walk-In Information Source: Patient Exam Limitations: No limitations Primary Care Provider: [facility] Nursing and Triage Documentation Reviewed and Agree: Yes GI Complaint Exam - Abdominal Pain Complaint/Exam Onset: Gradual Duration: several hours Symptoms Are: Still present Timing: Constant Initial Severity: Mild Current Severity: Moderate Location of Pain: Diffuse Radiates To: Reports: Back Character: Reports: Dull, Aching, Cramping Aggravating: Reports: Eating Alleviating: Reports: None Associated Signs and Symptoms: Reports: Back pain, Decreased appetite, Nausea, Vomiting. Denies: Diaphoresis, Fever, Cough, Chest pain, Dizziness, Constipation, Blood in stool, Dysuria, Urinary frequency, Decreased urine output , Vaginal bleeding, Vaginal discharge, Diarrhea, Sore throat Related History: Denies: Similar episode Patient Rh Status: Unknown Abdominal Findings: Present: None Differential Diagnoses: Bowel Obstruction, Constipation, Pancreatitis, GB, PUD Quality Indicator For Non-Traumatic Chest Pain/Syncope: EKG Performed Review of Systems - Review Of Systems Constitutional: Reports: No symptoms Eyes: Reports: No symptoms Ears, Nose, Mouth, Throat: Reports: No symptoms Respiratory: Reports: No symptoms Cardiac: Reports: No symptoms GI: Reports: Abdominal pain, Nausea, Poor fluid intake, Vomiting : Reports: No symptoms Musculoskeletal: Reports: No symptoms Skin: Reports: No symptoms Neurological: Reports: No symptoms Endocrine: Reports: No symptoms Hematologic/Lymphatic: Reports: No symptoms All Other Systems: Reviewed and Negative Past Medical History - Past Medical History Previously Healthy: Yes Endocrine: Reports: None Cardiovascular: Reports: None Respiratory: Reports: None Hematological: Reports: None Gastrointestinal: Reports: Pancreatitis Genitourinary: Reports: None Neuro/Psych: Reports: Other (CERVICAL STENOSIS- NECK) Musculoskeletal: Reports: None, Back Pain (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) Cancer: Reports: None Last Menstrual Period: YEARS AGO - Surgical History General Surgical History: Reports: None - Family History Family History: Reports: Unknown - Social History Smoking Status: Current every day smoker, Heavy tobacco smoker Hx Substance Use: No Alcohol Screening: Occasionally - Immunizations Tetanus Shot up to Date: Yes Influenza Vaccine within 12 Months: No Pneumococcal Vaccine up to Date: No Physical Exam - Physical Exam Appearance: Well-appearing, No pain distress, Well-nourished Pain Distress: Moderate Eyes: RADHA, EOMI, Conjunctiva clear ENT: Ears normal, Nose normal, Oropharynx normal Neck: Supple Respiratory: Airway patent Cardiovascular: RRR, Pulses normal, No rub, No murmur GI/: Soft, Nontender, No masses, Bowel sounds normal, No Organomegaly Musculoskeletal: Normal strength, ROM intact, No edema, No calf tenderness Skin: Warm Neurological: Sensation intact Psychiatric: Affect appropriate, Mood appropriate Interpretation - Radiology Interpretation Radiology Interpretation By: Radiologist Radiology Results: Positive Exam Interpreted: CT Scan ("acute pancreatitis") Re-Evaluation - Re-Evaluation Time of Re-Evaluation: 06:25 Status: Improved Vital Signs Stable: Yes Pain Level: 4 Appearance: NAD Lungs: Clear Skin: Warm and Dry Neuro: Alert and Oriented X3 CV: RRR Physician Notification - Case Discussed Physician Notified: dr culp Time of Notification: 06:25 Critical Care Note - Critical Care Note Total Time (mins): 0 Course - Course Hematology/Chemistry: 04/21/17 05:26 04/21/17 05:26 Orders, Labs, Meds: Lab Review 04/20/17 04/20/17 04/20/17 23:04 23:04 23:20 WBC 11.77 H RBC 3.67 L Hgb 14.0 Hct 39.5 MCV 107.6 H MCH 38.1 H MCHC 35.4 RDW Coeff of Mee 13.2 Plt Count 159 Immature Gran % (Auto) 0.3 Neut % (Auto) 71.7 Lymph % (Auto) 20.1 [place] % (Auto) 7.6 Eos % (Auto) 0.2 Baso % (Auto) 0.1 Immature Gran # (Auto) 0.0 Neut # 8.5 H Lymph # 2.4 [place] # 0.9 Eos # 0.0 Baso # 0.0 Anisocytosis 1+ Macrocytosis 3+ ESR 4 Sodium 137 Potassium 2.9 L Chloride 102 Carbon Dioxide 23 Anion Gap 14.9 BUN 16 Creatinine 0.66 Estimated GFR (MDRD) 96.00 BUN/Creatinine Ratio 24.24 Glucose 117 H Calcium 8.8 Total Bilirubin 0.85 AST 27 ALT 31 Alkaline Phosphatase 72 Total Creatine Kinase 22 Troponin I < 0.0100 Total Protein 6.0 L Albumin 3.3 L Globulin 2.7 Albumin/Globulin Ratio 1.22 Amylase 122 H Lipase 440 H Urine Color Yellow Urine Clarity Cloudy Urine pH 7.0 Ur Specific [place] 1.015 Urine Protein Negative Urine Glucose (UA) Negative Urine Ketones Negative Urine Blood Negative Urine Nitrite Negative Urine Bilirubin 1+ Urine Urobilinogen 1.0 Ur Leukocyte Esterase Negative Ur Squamous Epith Cells Not present Calcium Oxalate Crystal 2+ Amorphous Sediment 4+ 04/21/17 04/21/17 05:26 05:26 WBC 9.86 RBC 3.56 L Hgb 13.8 Hct 39.3 MCV 110.4 H MCH 38.8 H MCHC 35.1 RDW Coeff of Mee 13.4 Plt Count 160 Immature Gran % (Auto) 0.4 Neut % (Auto) 70.2 Lymph % (Auto) 20.2 [place] % (Auto) 8.8 Eos % (Auto) 0.3 Baso % (Auto) 0.1 Immature Gran # (Auto) 0.0 Neut # 6.9 Lymph # 2.0 [place] # 0.9 Eos # 0.0 Baso # 0.0 Anisocytosis 1+ Macrocytosis 2+ ESR Sodium 139 Potassium 3.6 Chloride 108 H Carbon Dioxide 25 Anion Gap 9.6 BUN 11 Creatinine 0.60 Estimated GFR (MDRD) 108.00 BUN/Creatinine Ratio 18.33 Glucose 101 Calcium 8.3 Total Bilirubin 0.96 AST 25 ALT 29 Alkaline Phosphatase 69 Total Creatine Kinase Troponin I Total Protein 5.7 L Albumin 3.1 L Globulin 2.6 Albumin/Globulin Ratio 1.19 Amylase 115 Lipase 356 H D Urine Color Urine Clarity Urine pH Ur Specific [place] Urine Protein Urine Glucose (UA) Urine Ketones Urine Blood Urine Nitrite Urine Bilirubin Urine Urobilinogen Ur Leukocyte Esterase Ur Squamous Epith Cells Calcium Oxalate Crystal Amorphous Sediment Orders Category Date Time Status EKG-(ED ONLY) Stat CARDIO 04/20/17 22:53 Completed IV [ED IV/MEDIPORT/POWERPORT] .ONCE EMERGENCY 04/20/17 22:54 Active AMYLASE Stat LAB 04/20/17 23:04 Completed AMYLASE Timed LAB 04/21/17 05:26 Completed CBC W/ AUTO DIFF Stat LAB 04/20/17 23:04 Completed CBC W/ AUTO DIFF Timed LAB 04/21/17 05:26 Completed COMPREHENSIVE METABOLIC PANEL Stat LAB 04/20/17 23:04 Completed COMPREHENSIVE METABOLIC PANEL Timed LAB 04/21/17 05:26 Completed CREATINE KINASE Stat LAB 04/20/17 23:04 Completed ESR Stat LAB 04/20/17 23:04 Completed LIPASE Stat LAB 04/20/17 23:04 Completed LIPASE Timed LAB 04/21/17 05:26 Completed RBC MORPHOLOGY Stat LAB 04/20/17 23:04 Completed RBC MORPHOLOGY Timed LAB 04/21/17 05:26 Completed TROPONIN I Stat LAB 04/20/17 23:04 Completed URINALYSIS C & S IF INDICATED Stat LAB 04/20/17 23:20 Completed 0.9 % Sodium Chloride [Saline Flush] MEDS 04/20/17 22:54 Ordered 1 syr IVF PRN PRN Hydromorphone HCl [Dilaudid 1 mg/ml Syringe] MEDS 04/20/17 22:54 Ordered 1 mg IVP Q1HR PRN Hydromorphone HCl/Pf [Dilaudid 2 mg/ml Syringe] MEDS 04/20/17 23:16 Discontinued 2 mg .ROUTE .STK-MED ONE Hydromorphone HCl/Pf [Dilaudid 2 mg/ml Syringe] MEDS 04/21/17 02:53 Discontinued 2 mg .ROUTE .STK-MED ONE Ondansetron HCl/Pf [Zofran 4 mg/2 ml] MEDS 04/20/17 22:55 Discontinued 4 mg IVP ONCE STA Potassium Chloride [Potassium Chloride Premix Run] 200 MEDS 04/21/17 00:43 Discontinued ml IV .STK-MED Potassium Chloride [Potassium Chloride Premix Run] 40 MEDS 04/21/17 00:37 Discontinued meq Premix 100 ml Water 2 bag IV ONCE Sodium Chloride 0.9% [Sodium Chloride] 1,000 ml MEDS 04/21/17 00:42 Discontinued IV 250 mls/hr Sodium Chloride 0.9% [Sodium Chloride] 1,000 ml MEDS 04/20/17 22:[address] ABDOMEN/PELVIS WO CONTRAST Stat RADS 04/20/17 22:55 Completed Medications Generic Name Dose Route Start Last Admin Trade Name Freq PRN Reason Stop Dose Admin Hydromorphone HCl 1 mg 04/20/17 22:54 Dilaudid 1 Mg/Ml Syringe IVP Q1HR PRN Abdominal Pain Sodium Chloride 1 syr 04/20/17 22:54 04/21/17 02:58 Saline Flush IVF 1 syr PRN PRN Administration To flush IV Discontinued Medications Generic Name Dose Route Start Last Admin Trade Name Leonardq PRN Reason Stop Dose Admin Sodium Chloride 1,000 mls @ 500 mls/hr 04/20/17 22:54 04/20/17 23:23 Sodium Chloride IV 04/21/17 00:53 500 mls/hr BOLUS STA Administration Potassium Chloride 40 meq/ 200 mls @ 50 mls/hr 04/21/17 00:37 04/21/17 00:52 Sterile Water IV 04/21/17 04:36 50 mls/hr ONCE STA Administration Sodium Chloride 1,000 mls @ 250 mls/hr 04/21/17 00:42 04/21/17 01:25 Sodium Chloride IV 04/21/17 04:41 250 mls/hr .Q4H STA Administration Ondansetron HCl 4 mg 04/20/17 22:55 04/20/17 23:23 Zofran 4 Mg/2 Ml IVP 04/20/17 22:56 4 mg ONCE STA Administration Vital Signs: Temp Pulse Resp BP Pulse Ox 04/20/17 22:16 98.7 F 75 24 162/91 H 98 Departure - Departure Time of Disposition: 06:25 Disposition: HOME SELF-CARE Discharge Problem: Acute pancreatitis Qualifiers: Pancreatitis type: unspecified pancreatitis type Acute pancreatitis complication: unspecified Qualified Code(s): K85.90 - Acute pancreatitis without necrosis or infection, unspecified Instructions: Pancreatitis (ED) Condition: Fair Pt referred to PMD for follow-up: Yes Allergies/Adverse Reactions: Allergies levofloxacin [From Levaquin] Adverse Reaction (Verified 04/20/17 22:26) sulfamethoxazole [From Bactrim] Adverse Reaction (Verified 04/20/17 22:26) trimethoprim [From Bactrim] Adverse Reaction (Verified 04/20/17 22:26) levofloxacin Adverse Reaction (Uncoded 04/20/17 22:26) Home Medications: Ambulatory Orders Multivitamin [Multi-Vitamin Daily] 1 tab PO DAILY 09/25/13 Oxycodone HCl/Acetaminophen [Oxycodon-Acetaminophen 7.5-325] 1 each PO TID 06/20 Ibuprofen 800 mg PO BID PRN 07/05/16 Sucralfate [Carafate] 1 gm PO PRN PRN 07/05/16 Gabapentin [Neurontin] 300 mg PO QID PRN 03/10/17 Tizanidine HCl [Zanaflex] 4 mg PO BID 04/16/17 Disposition Discussed With: Patient
[2017-04-21] MEDS ORDERED: DILAUDID 1 MG/ML SYRINGE IVP PRN (06:29)
[2017-04-21] MEDS ORDERED: ZOFRAN 4 MG/2 ML IVP PRN (06:29)
[2017-04-21] MEDS ORDERED: NON-FORMULARY MEDICATION (Gabapentin [Neurontin] 300 MG) PO PRN ×44 (06:30→07:15)
[2017-04-21] MEDS ORDERED: NEURONTIN PO PRN (07:16)
[2017-04-21 07:51] VITALS: BMI 25.7
[2017-04-21] MEDS: D5%-NS-KCL 20 MEQ/L IV SOL 1,000 ML IV SCH ×4 (08:39→16:35)
[2017-04-21] MEDS: PROTONIX IV IVP SCH (08:39)
[2017-04-21] MEDS: LOVENOX SUBCUT SCH (08:40)
[2017-04-21] MEDS: ZANAFLEX PO SCH ×2 (08:40→21:43)
[2017-04-21] MEDS: PERCOCET 7.5-325 PO SCH ×3 (08:40→21:43)
[2017-04-21] MEDS: DILAUDID 2 MG/ML SYRINGE IVP PRN ×5 (09:24→22:10)
[2017-04-22 00:22] VITALS: TEMP 99
[2017-04-22] MEDS: DILAUDID 2 MG/ML SYRINGE IVP PRN ×3 (03:03→07:55)
[2017-04-22] MEDS: D5%-NS-KCL 20 MEQ/L IV SOL 1,000 ML IV SCH (05:19)
[2017-04-22 06:03] VITALS: BP 150/75
[2017-04-22 07:48] LABS: BASOPHILS % (AUTO) 0.2 % (0.0-3.0); EOSINOPHILS # (AUTO) 0.1 K/ul (0.0-0.7); HEMATOCRIT 38.4 % (37.0-47.0); HEMOGLOBIN 13.3 g/dl (12.0-16.0); IMMATURE GRANULOCYTE % (AUTO) 0.7 % (0.0-5.0); LYMPHOCYTES # (AUTO) 1.7 K/uL (0.60-3.4); LYMPHOCYTES % (AUTO) 20.8 (10.0-50.0); MEAN CORPUSCULAR HEMOGLOBIN 38.6 pg (27.0-31.0); MEAN CORPUSCULAR HGB CONC 34.6 (31.8-35.4); MEAN CORPUSCULAR VOLUME 111.3 fl (81.0-99.0); MONOCYTES # (AUTO) 0.7 K/uL (0.4-2.0); MONOCYTES % (AUTO) 8.1 (0-10); NEUTROPHILS # (AUTO) 5.8 K/ul (2.0-6.9); NEUTROPHILS % (AUTO) 69.2; PLATELET COUNT 144 10^3/uL (140-440); RED BLOOD COUNT 3.45 10^6/ul (4.20-5.40); WHITE BLOOD COUNT 8.31 K/ul (4.6-10.2)
[2017-04-22] MEDS: PERCOCET 7.5-325 PO SCH (08:05)
[2017-04-22] MEDS: LOVENOX SUBCUT SCH (08:08)
[2017-04-22] MEDS: PROTONIX IV IVP SCH (08:08)
[2017-04-22] MEDS: ZANAFLEX PO SCH (08:08)
[2017-04-22 08:19] LABS: ALBUMIN 2.9 g/dL (3.4-5.0); ALBUMIN/GLOBULIN RATIO 1.16; ANION GAP 11.7; BILIRUBIN,TOTAL 0.77 mg/dL (0.00-1.20); BUN/CREATININE RATIO 6.89; CREATININE 0.58 mg/dL (0.60-1.30); POTASSIUM 3.7 mmol/L (3.5-5.10); TOTAL PROTEIN 5.4 g/dL (6.4-8.2)
[2017-04-22 09:53] LABS: AMYLASE 40 U/L (25-115)
[2017-04-22 09:54] LABS: LIPASE 66 U/L (8-78)
--- NOTE | 2017-05-11 08:43 | HP ---
DATE OF SERVICE: 04/21/17 CHIEF COMPLAINT: Abdominal pain HISTORY OF PRESENT ILLNESS: This is a 46 year old female with a history of pancreatitis came to the emergency room as she has been hurting in the epigastric area from last two days ever since she had a dinner with the family around [facility]. Dull, constant, aching type gradually getting worse also with some nausea but no vomiting. The patient does have past history of recurrent pancreatitis and she claimed that she thought it was pancreatitis and she was taking it easy at home and drinking a lot of fluids and not eating much but yesterday late in the night the patient got pain 10 out of 10 came to the emergency room and was seen by Dr. Hopkins in the emergency room. WBC 11,000, Amylase 122, lipase 440, potassium 4.9. CT scan of abdomen and pelvis showed the acute pancreatitis. At that time the patient being admitted to the hospital for the IV antibiotics, fluids and for the abdominal pain. REVIEW OF SYSTEMS: CONSTITUTIONAL: No fever, no chills. Weakness and tiredness. HEENT: Normal. ENDOCRINE: No weight gain; no weight loss. CVS: No chest pain. No PND, no orthopnea. No shortness of breath. No PND, no orthopnea. RESPIRATORY: No cough, no congestion. No hemoptysis. GI: Nausea, no vomiting. Abdominal pain. No melena. : No hematuria. No polyuria. MUSCULOSKELETAL: No joint swelling. PSYCHIATRIC: Not anxious. No depression. No suicidal thoughts. No homicidal thoughts. SKIN: Intact, no open lesions. PAST MEDICAL HISTORY: Hypertension Chronic headaches History of pneumonia History of pancreatitis GERD Continued nicotine use PAST SURGICAL HISTORY: None PERSONAL HISTORY: The patient does smoke and no alcohol and no drugs. Family History is significant for the heart problems. MEDICATIONS: Oxycodone Carafate Ibuprofen Neurontin Zanaflex Medrol-Dose pack Zantac ALLERGIES: Levofloxacin Sulfa PHYSICAL EXAMINATION: V/S: Blood pressure 162/92, respiratory rate 24, heart rate 74, temperature 98.7 with saturation 98%. GENERAL: Sick looking lady laying in a bed. HEENT: Atraumatic, normocephalic. No scleral icterus. Pallor positive. Mucosa dry. NECK: Supple. No JVD, no bruit. No lymphadenopathy. No thyromegaly. HEART: S1, S2 normal. No murmur. No cyanosis or clubbing. No ascites. LUNGS: Clear to auscultation. No rales or rhonchi. ABDOMEN: Soft, epigastric tenderness. Bowel sounds are sluggish. No CVA tenderness. No rigidity or guarding. EXTREMITIES: No cyanosis, clubbing or pedal edema. MUSCULOSKELETAL: Normal joints, no swelling. NEUROLOGIC: The patient is SKIN: Intact; no open lesions. LYMPHATIC: No lymph nodes palpable. LABS: Sodium 137, potassium 2.9, chloride 102, bicarb 23, BUN 16, creatinine 0.66, glucose 117, amylase 122, lipase 440, WBC 11.77, hgb 14.0, hct 39.5, plt count 159. ASSESSMENT: 1. Acute pancreatitis 2. Hypokalemia 3. Elevated white count 4. DJD spine 5. Osteoarthritis 6. GERD PLAN: 1. Admit patient to the regular floor 2. CBC and CMP today and daily 3. Cardiac enzymes and Troponin 4. IV fluids 5. NPO 6. Lovenox for the DVT Prophylaxis 7. Continue home medications TIME SPENT: MORE THAN 70 minutes MTDD
--- NOTE | 2017-05-11 09:00 | PN ---
DATE OF SERVICE: 04/22/17 SUBJECTIVE: The patient was admitted with acute on chronic pancreatitis. The patient is still hurting in the pelvis did not have any food. just having some sips of water. Getting Dilaudid for the pain. REVIEW OF SYSTEMS: CONSTITUTIONAL: No fever, no chills. HEENT: Normal. ENDOCRINE: No weight gain, no weight loss. CVS: No angina symptoms. No CHF symptoms. No palpitations. No atypical chest pain for CAD. No shortness of breath. No PND, no orthopnea. RESPIRATORY: No cough, no hemoptysis. GI: No nausea, no vomiting. No abdominal pain. : No hematuria. No polyuria. MUSCULOSKELETAL:. No joint swelling. PSYCHIATRIC: Not anxious. No depression. No suicidal thoughts. No homicidal thoughts. SKIN: Intact. No rash. PHYSICAL EXAMINATION: V/S: Blood pressure 143/82, respiratory rate 20, heart rate 69, temperature 98.4 with saturation 97% HEENT: Normocephalic, atraumatic. Mucosa dry. NECK: Supple. No JVD, no carotid bruit. No lymphadenopathy. LUNGS: bilateral entry is decreased and clear to auscultation. No rales or rhonchi. HEART: S1, S2 normal. No S3. No murmur, gallop or regurgitation. ABDOMEN: Soft, Epigastric tenderness is present. Bowel sounds sluggish. No rigidity. No rebound or guarding. No CVA tenderness. EXTREMITIES: No clubbing, cyanosis or pedal edema. MUSCULOSKELETAL: No joint swelling. NEUROLOGIC: Awake, alert, oriented times three. No focal deficit. LYMPHATIC: No lymph nodes palpable. SKIN: Intact. LABS: WBC 8.31, hgb 13.3. hct 38.4, plt count 144, sodium 141, potassium 3.7, chloride 108, bicarb 25, BUN 4, creatinine 0.58 ASSESSMENT: 1. Acute on chronic pancreatitis, Amylase and lipase normal 40 and 6.6. 2. Recurrent chronic pancreatitis 3. History of migraine headaches 4. Hypertension 5. GERD 6. Nicotine use PLAN: 1. Clear liquid diet 2. Dilaudid 1 to 2mg Q 4-6 hours 3. Zofran PRN 4. Activity as tolerated TIME SPENT: More than 35 minutes MTDD
--- NOTE | 2017-05-11 09:07 | AMA ---
HISTORY: The patient was admitted with acute pancreatitis. The patient has decided that she will sign against medical advise. She works at the [employer] and she doesn't want to miss work. Requested as that patient has patient is not clearly better, fully normal still hurting and getting Dilaudid that it isn't a good idea to go but the patient refused and signed the papers and left against medical advise. Clearly advised that incase the patient is feeling still bad and not getting better she can came come back at any time. TIME SPENT: More than 25 minutes again. SANJUANA
== END 2017-04-22 10:00 | disposition home or self-care (01) | DRG 440 ==
LOC: ED 22:14 → MEDSURG A 04-21 06:36
PROVIDERS: ADMIT Emergency Medicine; ATTEND Emergency Medicine
DX: K85.90 Acute pancreatitis without necrosis or infection, unspecified (principal); K86.1 Other chronic pancreatitis; I10 Essential (primary) hypertension; K21.9 Gastro-esophageal reflux disease without esophagitis; F17.200 Nicotine dependence, unspecified, uncomplicated; Z79.899 Other long term (current) drug therapy; Z86.69 Personal history of other diseases of the nervous system and sense organs
CPT/HCPCS: 36415; 80053; 81001; 82150; 82550; 83690; 84484; 85008; 85025; 85651; 93005; 93010; 96361; 96365; 96375; 96376; 99284

== ENCOUNTER 2017-04-24 08:02 | Outpatient (CLI) ==
--- NOTE | 2017-04-24 10:10 | MRI ---
EXAM: MRI of the right hip without contrast COMPARISON: CT of the abdomen and pelvis 04/20/2017. MRI of the lumbar spine 08/01/2016. HISTORY: Posterior right hip pain. No known injury. Sciatica. TECHNIQUE: Multiplanar noncontrast MR images of the pelvis/hips were acquired using a 1.5 Luli magn et. Large field of view imaging was employed on the axial and coronal sequences with inclusion both right and left hips in the field of view with sagittal images obtained only through the right hip. FINDINGS: There is moderate right hip osteoarthrosis with anterosuperior joint space narrowing subch ondral cystic change throughout the anterior portion of the right acetabulum. Minimal degenerative s purring at the left hip. Physiologic amount of fluid throughout the hip joints bilaterally. Transit ional anatomy at the lumbosacral junction. Minimal degenerative spurring of the sacroiliac joints wi thout evidence of active sacroiliitis or ankylosis. No evidence of an acute fracture, osteomyelitis or osteonecrosis. Low-level inflammation of the soft tissues lateral to the greater trochanters bilaterally, more prono unced on the right. No drainable greater trochanteric bursal collection. Bone spurs along the great er trochanters bilaterally, more extensive on the right. Gluteus minimus tendinosis bilaterally with out a full-thickness tendon tear or tendon retraction. Mild diffuse muscle atrophy. 1.7 x 1.6 cm T1 hypointense/inversion recovery hypointense lesion along the right lateral aspect of t he vagina consistent with a mildly complex but benign appearing perivaginal cyst. No pathologically enlarged intrapelvic lymph nodes. The sciatic nerves are unremarkable appearance throughout the visu alized course bilaterally. IMPRESSION: 1. No acute osseous abnormality. Moderate degenerative changes of the right hip with minimal degene rative changes of the left hip. 2. Low-level inflammation of the soft tissues lateral to the greater trochanters bilaterally, more e xtensive on the right. No drainable greater trochanteric bursal collection. 3. Gluteus minimus tendinosis and enthesopathy bilaterally, more pronounced on the right. No full-t hickness tendon tear or tendon retraction. Mild diffuse muscle atrophy. 4. Mildly complex perivaginal cyst as described.
== END 2017-04-24 08:03 | disposition home or self-care (01) ==
LOC: RAD 08:02
PROVIDERS: ATTEND Nurse Practitioner Family
DX: M54.31 Sciatica, right side (principal)

== ENCOUNTER 2017-06-09 09:54 | Emergency (ER) ==
[2017-06-09 10:04] VITALS: BP 112/80; TEMP 95.6; BMI 24.3
--- NOTE | 2017-06-09 10:13 | ED.PDOC ---
General ED Provider: Dr. MARGARITA WATTS Chief Complaint: Extremity Pain/Injury Stated Complaint: patient is in pain management for sciatica which she has had for months. She had had an MRI. has been refered to Orthopedics for followup. Has been given steroids and Toradol shots which worked for two weeks. woke up at 2 this mroning with pains and needile on the right side of the back. states it took her ten minutes to get up. Smoke cigg Time Seen by Physician: 10:12 Mode of Arrival: Walk-In Information Source: Patient Exam Limitations: No limitations [facility] Documentation Reviewed and Agree: Yes Reviewed sepsis parameters & appropriate labs ordered?: Yes System Inflammatory Response Syndrome: Not Applicable Sepsis Protocol: For patient's 13 years and over: Temp is 96.8 and below OR 101 and greater Pulse >90 BPM Resp >20/minute Acutely Altered Mental Status Are patient's symptoms suggestive of a new infection, such as: -Pneumonia -Skin, Soft Tissue -Endocarditis -UTI -Bone, Joint Infection -Implantable Device -Acute Abdominal Infection -Wound Infection -Meningitis -Blood Stream Catheter Infection -Unknown System Inflammatory Response Syndrome: Not Applicable Review of Systems - Review Of Systems Constitutional: Reports: No symptoms Eyes: Reports: No symptoms Ears, Nose, Mouth, Throat: Reports: No symptoms Respiratory: Reports: No symptoms Cardiac: Reports: No symptoms GI: Reports: No symptoms : Reports: No symptoms Musculoskeletal: Reports: Back pain Skin: Reports: No symptoms Neurological: Reports: No symptoms Endocrine: Reports: No symptoms Hematologic/Lymphatic: Reports: No symptoms All Other Systems: Reviewed and Negative Past Medical History - Past Medical History Previously Healthy: Yes Endocrine: Reports: None Cardiovascular: Reports: None Respiratory: Reports: None Hematological: Reports: None Gastrointestinal: Reports: Pancreatitis Genitourinary: Reports: None Neuro/Psych: Reports: Other (CERVICAL STENOSIS- NECK) Musculoskeletal: Reports: None, Back Pain (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) Cancer: Reports: None Last Menstrual Period: NA - Surgical History General Surgical History: Reports: None - Family History Family History: Reports: Unknown - Social History Smoking Status: Current some day smoker Hx Substance Use: No Alcohol Screening: None - Immunizations Tetanus Shot up to Date: Yes Influenza Vaccine within 12 Months: No Pneumococcal Vaccine up to Date: No Physical Exam - Physical Exam Appearance: Ill-appearing Ill-appearing: Mild Pain Distress: Severe Neck: Supple Respiratory: Airway patent, Breath sounds clear, Breath sounds equal, Respirations nonlabored Cardiovascular: RRR, Pulses normal, No rub, No murmur GI/: Soft, Nontender, No masses, Bowel sounds normal, No Organomegaly Musculoskeletal: Normal strength, No edema, No calf tenderness, Limited ROM Skin: Warm, Dry, Normal color Neurological: Sensation intact, Motor intact, Reflexes intact, Cranial nerves intact, Alert, Oriented Psychiatric: Anxious Critical Care Note - Critical Care Note Total Time (mins): 0 Course - Course Orders, Labs, Meds: Orders Category Date Time Status Dexamethasone 4 mg/ml Inj [Decadron 4 mg/ml Sdv] MEDS 06/09/17 10:12 Discontinued 8 mg IM ONCE STA Ketorolac Tromethamine [Toradol] MEDS 06/09/17 10:12 Discontinued 60 mg IM ONCE STA Medications Discontinued Medications Generic Name Dose Route Start Last Admin Trade Name Freq PRN Reason Stop Dose Admin Dexamethasone Sodium Phosphate 8 mg 06/09/17 10:12 06/09/17 10:22 Decadron 4 Mg/Ml Sdv IM 06/09/17 10:13 8 mg ONCE STA Administration Ketorolac Tromethamine 60 mg 06/09/17 10:12 06/09/17 10:23 Toradol IM 06/09/17 10:13 60 mg ONCE STA Administration Vital Signs: Temp Pulse Resp BP Pulse Ox 06/09/17 10:01 95.6 F L 87 20 112/80 98 Departure - Departure Time of Disposition: 10:37 Disposition: HOME SELF-CARE Discharge Problem: Sciatic radiculitis Instructions: Piriformis Syndrome (ED) Condition: Stable Pt referred to PMD for follow-up: Yes IPMP verified?: No Additional Instructions: Take medications as prescribed Followup with Ortho as scheduled. Prescriptions: Prednisone 60 mg PO DAILYWM #25 tablet Allergies/Adverse Reactions: Allergies levofloxacin [From Levaquin] Adverse Reaction (Verified 06/09/17 10:08) sulfamethoxazole [From Bactrim] Adverse Reaction (Verified 06/09/17 10:08) trimethoprim [From Bactrim] Adverse Reaction (Verified 06/09/17 10:08) levofloxacin Adverse Reaction (Uncoded 04/20/17 22:26) Home Medications: Ambulatory Orders Oxycodone HCl/Acetaminophen [Oxycodon-Acetaminophen 7.5-325] 7.5 mg PO TID 06/20 Ibuprofen 800 mg PO BID PRN 07/05/16 Sucralfate [Carafate] 1 gm PO PRN PRN 07/05/16 Gabapentin [Neurontin] 300 mg PO QID PRN 03/10/17 Tizanidine HCl [Zanaflex] 4 mg PO BEDTIME 04/16/17 Ranitidine HCl [Zantac] 1 tab PO PRN PRN 04/21/17 Prednisone 60 mg PO DAILYWM #25 tablet 06/09/17
[2017-06-09] MEDS: DECADRON 4 MG/ML SDV IM STA (10:22)
[2017-06-09] MEDS: TORADOL IM STA (10:23)
== END 2017-06-09 11:04 | disposition home or self-care (01) ==
LOC: ED 09:54
DX: M54.30 Sciatica, unspecified side (principal); M54.10 Radiculopathy, site unspecified
CPT/HCPCS: 96372; 99283

== ENCOUNTER 2017-07-12 16:21 | Outpatient (CLI) | END 2017-07-12 16:22 | disposition home or self-care (01) | LOC: LAB 16:21 | PROVIDERS: ATTEND Nurse Practitioner Family | DX: M54.9 Dorsalgia, unspecified (principal); G89.29 Other chronic pain; E78.5 Hyperlipidemia, unspecified | CPT/HCPCS: 36415; 80053; 80061; 84443; 85007; 85008; 85025 ==

== ENCOUNTER 2017-12-06 16:35 | Emergency (ER) ==
--- NOTE | 2017-12-06 16:39 | ED.PDOC ---
General ED Provider: Dr. KEO JIMÉNEZ Chief Complaint: Fall Stated Complaint: Severe Hip and thigh pain. Was walking her dog. Tripped over tree root growing out of ground and injured her Rt Hip and foot/. Laid in her driveway for over 30 minutes before she received help. Presented in acute distress from pain in her rt hip Time Seen by Physician: 16:35 Mode of Arrival: Wheelchair Information Source: Patient Exam Limitations: Clinical condition [facility] Documentation Reviewed and Agree: Yes Does patient meet sepsis criteria?: No System Inflammatory Response Syndrome: Not Applicable Sepsis Protocol: For patient's 13 years and over: Temp is 96.8 and below OR 101 and greater Pulse >90 BPM Resp >20/minute Acutely Altered Mental Status Are patient's symptoms suggestive of a new infection, such as: -Pneumonia -Skin, Soft Tissue -Endocarditis -UTI -Bone, Joint Infection -Implantable Device -Acute Abdominal Infection -Wound Infection -Meningitis -Blood Stream Catheter Infection -Unknown Musculoskeletal Complaint Exam - Hip/Pelvis Complaint/Exam Location of Pain: Reports: Right Mechanism of Injury: Reports: Trauma Onset/Duration: 30 min to 1 hr Symptoms Are: Still present Initial Severity: Severe Current Severity: Severe Location: Reports: Diffuse Character: Reports: Sharp, Aching, Throbbing Aggravating: Reports: Movement Alleviating: Reports: Rest, Position Associated Signs and Symptoms: Reports: Weakness Related History: Denies: Similar episode Able to Bear Weight: Yes Related Surgical History: Reports: None Rotation: External Hip/Pelvis Findings: Present: Extremity shortened Tenderness: Present: Right, PSIS, ASIS, Greater Trochanter, Pubis Range of Motion Limited In: Present: Flexion, Adduction, Internal rotation NV Bundle Intact Distal to Injury: Yes Differential Diagnoses: Fracture Review of Systems - Review Of Systems Constitutional: Reports: No symptoms Eyes: Reports: No symptoms Ears, Nose, Mouth, Throat: Reports: No symptoms Respiratory: Reports: No symptoms Cardiac: Reports: No symptoms GI: Reports: No symptoms, Other (pancreatitis) : Reports: No symptoms Musculoskeletal: Reports: No symptoms, Joint pain, Joint swelling, Muscle pain Skin: Reports: No symptoms Neurological: Reports: No symptoms Endocrine: Reports: No symptoms Hematologic/Lymphatic: Reports: No symptoms All Other Systems: Reviewed and Negative Past Medical History - Past Medical History Previously Healthy: Yes Endocrine: Reports: None Cardiovascular: Reports: None Respiratory: Reports: None Hematological: Reports: None Gastrointestinal: Reports: Pancreatitis Genitourinary: Reports: None Neuro/Psych: Reports: Other (CERVICAL STENOSIS- NECK) Musculoskeletal: Reports: None, Back Pain (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) Cancer: Reports: None - Surgical History General Surgical History: Reports: None - Family History Family History: Reports: Unknown - Social History Smoking Status: Current some day smoker Hx Substance Use: No Alcohol Screening: None - Immunizations Influenza Vaccine within 12 Months: No Pneumococcal Vaccine up to Date: No Physical Exam - Physical Exam Appearance: Well-appearing, Thin Ill-appearing: Mild Pain Distress: Severe Eyes: RADHA, EOMI, Conjunctiva clear ENT: Ears normal, Nose normal, Oropharynx normal Respiratory: Airway patent, Breath sounds clear, Breath sounds equal, Respirations nonlabored Cardiovascular: RRR, Pulses normal, No rub, No murmur GI/: Soft, Nontender, No masses, Bowel sounds normal, No Organomegaly Musculoskeletal: Limited strength (RLE-externally rotated with severe pain with any attemtp to move hip/LE) Re-Evaluation - Re-Evaluation Time of Re-Evaluation: 18:00 Status: Improved (Pain has reduced from IV analgesics) Vital Signs Stable: Yes Lungs: Clear Skin: Warm and Dry Neuro: Alert and Oriented X3 CV: RRR Physician Notification - Case Discussed Physician Notified: Dr Cherelle Gonsalez -Ortho Time of Notification: 18:10 (accepts patient) Physician Notified: Dr Poole-Sandor Time of Notification: 18:15 (Accepts patient in transfer, aware of pmhx) Critical Care Note - Critical Care Note Total Time (mins): 60 Course - Course Hematology/Chemistry: 12/06/17 16:49 12/06/17 16:49 Orders, Labs, Meds: Lab Review 12/06/17 12/06/17 16:49 16:49 WBC 8.15 RBC 4.16 L Hgb 15.4 Hct 43.9 MCV 105.5 H MCH 37.0 H MCHC 35.1 RDW Coeff of Mee 12.8 Plt Count 167 Immature Gran % (Auto) 0.7 Neut % (Auto) 64.0 Lymph % (Auto) 27.4 Person % (Auto) 6.3 Eos % (Auto) 1.1 Baso % (Auto) 0.5 Immature Gran # (Auto) 0.1 Neut # (Auto) 5.2 Lymph # (Auto) 2.2 Person # (Auto) 0.5 Eos # (Auto) 0.1 Baso # (Auto) 0.0 Sodium 140 Potassium 3.6 Chloride 106 Carbon Dioxide 20 L Anion Gap 17.6 BUN 7 Creatinine 0.70 Estimated GFR (MDRD) 90.00 BUN/Creatinine Ratio 10.00 Glucose 91 Calcium 9.6 Total Bilirubin 1.0 AST 45 H ALT 35 Alkaline Phosphatase 111 H Total Protein 7.3 Albumin 3.8 Globulin 3.5 Albumin/Globulin Ratio 1.09 Orders Category Date Time Status IV [ED IV/MEDIPORT/POWERPORT] .ONCE EMERGENCY 12/06/17 16:40 Active CBC W/ AUTO DIFF Stat LAB 12/06/17 16:49 Completed CMP [COMPREHENSIVE METABOLIC PANEL] Stat LAB 12/06/17 16:49 Completed 0.9 % Sodium Chloride [Saline Flush] MEDS 12/06/17 17:04 Ordered 1 syr IVF ONCE PRN Hydromorphone HCl/Pf [Dilaudid 2 mg/ml Syringe] MEDS 12/06/17 16:41 Discontinued 1 mg IVP ONCE STA Hydromorphone HCl/Pf [Dilaudid 2 mg/ml Syringe] MEDS 12/06/17 18:02 Discontinued 1 mg IVP ONCE STA Lorazepam [Ativan] MEDS 12/06/17 18:04 Discontinued 0.5 mg IVP ONCE STA Sodium Chloride 0.9% [Sodium Chloride] 500 ml MEDS 12/06/17 16:[address] PELVIS W/O CONTRAST Stat RADS 12/06/17 16:42 Completed Medications Generic Name Dose Route Start Last Admin Trade Name Freq PRN Reason Stop Dose Admin Sodium Chloride 1 syr 12/06/17 17:04 12/06/17 17:06 Saline Flush IVF 1 syr ONCE PRN Administration lock Discontinued Medications Generic Name Dose Route Start Last Admin Trade Name Freq PRN Reason Stop Dose Admin Hydromorphone HCl 1 mg 12/06/17 16:41 12/06/17 16:59 Dilaudid 2 Mg/Ml Syringe IVP 12/06/17 16:42 1 mg ONCE STA Administration Hydromorphone HCl 1 mg 12/06/17 18:02 Dilaudid 2 Mg/Ml Syringe IVP 12/06/17 18:03 ONCE STA Sodium Chloride 500 mls @ 500 mls/hr 12/06/17 16:41 12/06/17 16:57 Sodium Chloride IV 12/06/17 17:40 500 mls/hr BOLUS STA Administration Lorazepam 0.5 mg 12/06/17 18:04 Ativan IVP 12/06/17 18:05 ONCE STA Vital Signs: Temp Pulse Resp BP Pulse Ox 12/06/17 18:13 165/103 H 12/06/17 17:43 167/93 H 12/06/17 16:35 98.8 F 74 20 191/82 H 96 Departure - Departure Time of Disposition: 18:30 Disposition: TSF SHORT-TRM HOSP Discharge Problem: Intertrochanteric fracture of right hip Condition: Good Pt referred to PMD for follow-up: No IPMP verified?: No Referrals: CHERELLE GONSALEZ [REFERRING] - Allergies/Adverse Reactions: Allergies levofloxacin [From Levaquin] Adverse Reaction (Verified 12/06/17 16:47) sulfamethoxazole [From Bactrim] Adverse Reaction (Verified 12/06/17 16:47) trimethoprim [From Bactrim] Adverse Reaction (Verified 12/06/17 16:47) levofloxacin Adverse Reaction (Uncoded 12/06/17 16:47) tegaderm film Adverse Reaction (Uncoded 12/06/17 16:56) Home Medications: Ambulatory Orders Oxycodone HCl/Acetaminophen [Oxycodon-Acetaminophen 7.5-325] 7.5 mg PO TID 06/20 Ibuprofen 800 mg PO BID PRN 07/05/16 Sucralfate [Carafate] 1 gm PO PRN PRN 07/05/16 Gabapentin [Neurontin] 300 mg PO QID PRN 03/10/17 Tizanidine HCl [Zanaflex] 4 mg PO BEDTIME 04/16/17 Ranitidine HCl [Zantac] 1 tab PO PRN PRN 04/21/17 Transfer Form Completed: Yes Disposition Discussed With: Patient Additional Information: [id number] scan 1809: SPoke with Dr Levon tapia who will Accept [address] [facility]
[2017-12-06] MEDS ORDERED: SODIUM CHLORIDE 500 ML IV STA (16:41)
[2017-12-06] MEDS ORDERED: DILAUDID 2 MG/ML SYRINGE IVP STA ×2 (16:41→18:02)
[2017-12-06 17:19] VITALS: TEMP 98.8; BMI 23.8
--- NOTE | 2017-12-06 17:55 | CT ---
EXAM: CT scan pelvis without contrast HISTORY: Fall COMPARISON: None. FINDINGS: Contiguous axial images obtained through the pelvis without contrast utilizing 3-mm collim ation. Sagittal and coronal reconstructions were imaged and reviewed.. There is an right-sided inte rtrochanteric fracture which involves the lesser and greater trochanters. Degenerative changes are n oted about both hip joints. The SI joints are intact. Degenerative changes are seen within the lowe r lumbar spine.. There is no free fluid. IMPRESSION: Right-sided intertrochanteric fracture. Osteoarthritic degenerative changes bilateral hip joints.
[2017-12-06] MEDS ORDERED: ATIVAN IVP STA (18:04)
[2017-12-06 18:14] VITALS: BP 165/103
== END 2017-12-06 19:00 | disposition short-term general hospital (02) ==
LOC: ED 16:35
DX: S72.141A Displaced intertrochanteric fracture of right femur, initial encounter for closed fracture (principal); W01.0XXA Fall on same level from slipping, tripping and stumbling without subsequent striking against object, initial encounter; F17.210 Nicotine dependence, cigarettes, uncomplicated
CPT/HCPCS: 36415; 80053; 85025; 96361; 96374; 96375; 96376; 99285

== ENCOUNTER 2017-12-06 19:10 | Outpatient (CLI) ==
[2017-12-06 17:19] VITALS: BMI 23.8
== END 2017-12-06 19:32 | disposition short-term general hospital (02) ==
LOC: AMBL 19:10
PROVIDERS: ATTEND Emergency Medicine
DX: S72.001A Fracture of unspecified part of neck of right femur, initial encounter for closed fracture (principal); W19.XXXA Unspecified fall, initial encounter

== ENCOUNTER 2018-01-23 14:12 | Outpatient (RCR) ==
--- NOTE | 2018-01-23 15:59 | RS.OPPTEV2 ---
Date of Note: 01/23/18 Visit #: 1 Date of Evaluation: 01/23/18 Payer Source: Medicaid Date of Onset/Injury/Change in Status: 12/06/17 Surgery Performed?: Yes (trochanteric femoral nailing for intertrochanteric femur fx ) Date of Procedure: 12/06/17 Treatment Diagnosis: intertrochanteric femur fracture, s/p nailing History of Condition/Mechanism of Injury:: pt states she fell at home tripping over tree root sustaining R intertrochanteric femur fx. 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 Functional Limitations: Standing, Squatting, Ambulation, Community Access/ Integration Current Subjective/complaints:: pt states that she has been released to return to WBAT RLE. pt is very anxious to return to work. Treatment Side (optional): Right *Precautions: WBAT RLE Medical History Medical History: Arthritis Medical History Comments:: chronic low back pain, R femur fx Surgical History Comments:: R intertrochanteric nailing femur 12/06/17 Smoking Status: Current every day smoker Hx Home Medications: percocet, gabapentin, zanaflex, aspirin, zantac, Patient's Goals: return to work [employer] Pain Assessment - Pain Description Pain Location: R hip Pain Description: Aching Current Pain Intensity: 7/10 Worst Pain Intensity: 10/10 Functional Outcome Measure LE Functional Scale: 9 - G Codes & Severity Modifier G Codes & Modifier: n/a Source of G Code score: n/a Observation - Observation Inspection: pt with 1+ pitting edema RLE. incision is healed Posture: Forward Head, Rounded Shoulders Handedness: Right Gait - Gait Pattern General Gait Pattern Observation: Antalgic Gait Gait Comments: pt amb with antalgic gait with decreased stance time on RLE. General Range of Motion: BUE WFL's. LLE WFL's. RLE WFL's with pain Hip ROM: Left WFL's Hip Muscle Strength: Left WFL's - Right Hip ROM Right Hip ROM Limitations: Pain, Muscle Weakness Comments: pt hip ROM WFL's with pain at end range. - Right Hip Strength Right Hip Flexion: 3+ Fair+ Right Hip Extension: 3 Fair Right Hip Abduction: 3 Fair Right Hip Adduction: 3+ Fair+ Palpation Palpation Findings: Tenderness Comments:: over incision, and to R knee Sensation - Sensation Right Upper Extremity: Impaired (numbness in 5th finger) Left Upper Extremity: Impaired (n/t in L forearm) Right Lower Extremity: Impaired (numbness to R foot) Left Lower Extremity: Intact/Normal Comments: pt reports areas of numbness and tingling due to chronic back issues Balance - Sitting Balance Static Sitting Balance: Normal Dynamic Sitting Balance: Normal - Standing Balance Static Standing Balance: Good Dynamic Standing Balance: Fair Interventions - Exercise/Activities/Manual Therapy Exercises/Activities: pt performed SAQ, hip abd/add, isometric hip add, SLR, LAQ , seated hip flex x 5 to 10 reps with verbal cues for technique and to modify ex. Manual Therapy: NA HOME EXERCISE PROGRAM: pt given written HEP including; SAQ, SLR, hip abd/add, LAQ, seated hip flex, isometric hip add - Charges Timed Code Treatment Minutes: 51 Total Treatment Time: 59 Procedures billed for this date of service:: eval med, ex EVALUATION COMPLEXITY LEVEL EVALUATION COMPLEXITY LEVEL: HISTORY: Medium (OA, femur fx, chronic back pain), EXAM OF BODY SYSTEMS: Medium (pain, strength, ROM, balance, ), CLINICAL PRESENTATION: Medium (evolving), CLINICAL DECISION MAKING: Medium Assessment Assessment: pt presents s/p R intertrochanteric femur fx nailing. pt with decreased strength, pain, gait ability. Feel pt would benefit from therex for strengthening, balance as well as gait training to improve functional mobility and decrease risk of falls. 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 Goal #1: pt amb community distances without AD with no LOB Goal to be met by: 02/20/18 Goal #2: score on LE functional scale improved to >20 Goal to be met by: 02/20/18 Goal #3: pt report ability to return to normal activities with less pain Goal to be met by: 02/20/18 Goal #4: Improve RLE strength to 4 to 4+/5 Goal to be met by: 02/20/18 Plan - Treatment to be Provided Procedures: Therapeutic Exercises, Therapeutic Activity, Patient Education Modalities: Cryotherapy, Hot Packs - Treatment Plan Frequency: 2 X week Duration: 4 weeks ORDER # VISITS AND/OR THROUGH DATE: 02/20/18 - Treatment Code (1) Right hip pain Code(s): M25.551 - PAIN IN RIGHT HIP (2) Muscle weakness Code(s): M62.81 - MUSCLE WEAKNESS (GENERALIZED) (3) Edema of right lower extremity Code(s): R60.0 - LOCALIZED EDEMA (4) Aftercare following surgery of the musculoskeletal system Code(s): Z47.89 - ENCOUNTER FOR OTHER ORTHOPEDIC AFTERCARE
== END 2018-01-25 23:59 ==
PROVIDERS: ATTEND Orthopaedic Surgery
DX: Z47.89 Encounter for other orthopedic aftercare (principal); M25.551 Pain in right hip; M62.81 Muscle weakness (generalized); R60.0 Localized edema

== ENCOUNTER 2018-01-29 15:36 | Outpatient (CLI) ==
[2017-12-06 18:23] VITALS: BMI 23.8
== END 2018-01-29 15:37 | disposition home or self-care (01) ==
LOC: RHC-LAB 15:36
PROVIDERS: ATTEND Nurse Practitioner Family
DX: L03.115 Cellulitis of right lower limb (principal); S81.801A Unspecified open wound, right lower leg, initial encounter
CPT/HCPCS: 87070

== ENCOUNTER 2018-02-12 11:00 | Outpatient (RCR) ==
[2017-12-06 18:23] VITALS: BMI 23.8
--- NOTE | 2018-01-29 13:14 | RS.OPPTDN ---
Subjective Date of Note: 01/29/18 Visit #: 2 Date of Evaluation: 01/23/18 Payer Source: Medicaid Treatment Diagnosis: intertrochanteric femur fracture, s/p nailing Current Subjective/complaints:: pt states she "over did it" yesterday. 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 States she has had some increased pain and swelling since then. pt also states that she has a sore on her R lateral leg and is going to have it seen about at the clinic. pt is emotional crying stating it is not about her leg but other things. *Precautions: WBAT RLE Pain Assessment - Pain Description Pain Location: R hip Pain Description: Sharp, Acute Current Pain Intensity: 6 Other Comments regarding Pain:: states pain is worse since working yesterday - Heat/Cryotherapy Comments:: pt refused ice pack stating she would get one at home after she gets all her stuff done today. Interventions - Exercise/Activities/Manual Therapy Exercises/Activities: pt performed resisted AP, SAQ, SLR, hip abd/add with 2 sets of 10 reps. Seated LAQ, hip flex with 1 1/2# weight 2 sets of 10 reps, isometric hip add 2 sets of 10 reps. pt requires rest periods between ex as well as verbal and tactile cues to direct ex for proper technique. Total minutes of Exercise: 38 Manual Therapy: NA HOME EXERCISE PROGRAM: pt given written HEP including; SAQ, SLR, hip abd/add, LAQ, seated hip flex, isometric hip add - Charges Timed Code Treatment Minutes: 38 Total Treatment Time: 42 Procedures billed for this date of service:: ex 3 Assessment: pt very emotional/tearful this treatment. pt with increased pain and edema this date. Instructed pt to follow MD instructions regarding returning to work and to rest and elevate RLE as well as using ice packs to decrease edema and pain. 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
--- NOTE | 2018-02-01 15:58 | RS.OPPTDN ---
Subjective Date of Note: 02/01/18 Visit #: 3 Date of Evaluation: 01/23/18 Payer Source: Medicaid Treatment Diagnosis: intertrochanteric femur fracture, s/p nailing Current Subjective/complaints:: Patient reports she took her pain medication prior to therapy today. States she is doing HEP. She has some discomfort with hip abd/add and SLR at end of 10rep set. *Precautions: WBAT RLE Pain Assessment - Pain Description Pain Location: right hip and LE Current Pain Intensity: mild to mod Interventions - Exercise/Activities/Manual Therapy Exercises/Activities: Patient assisted with gentle ROM of hip, knee, and ankle in short ranges. SAQ 3#, 3s/10reps. SLR, and SLR/VMO, 3s/10reps each. Red theraband for resistive ankle df and ham curl, 2s/10reps each. Red theraband for short range hip abd and hip add. Isometric hip add and isometric ankle inversion with hip IR, both with ball. Patient education of joint mechanics, safety, and HEP. Total minutes of Exercise: 42mins Manual Therapy: NA HOME EXERCISE PROGRAM: pt given written HEP including; SAQ, SLR, hip abd/add, LAQ, seated hip flex, isometric hip add - Charges Timed Code Treatment Minutes: 42mins Total Treatment Time: 42mins Procedures billed for this date of service:: EX3 Assessment: Patient able to progress with resistive exercises today. She is motivated to return to work. 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
--- NOTE | 2018-02-05 12:05 | RS.OPPTDN ---
Subjective Date of Note: 02/05/18 Visit #: 4 Date of Evaluation: 01/23/18 Payer Source: Medicaid Treatment Diagnosis: intertrochanteric femur fracture, s/p nailing Current Subjective/complaints:: Reports she is getting stronger. States she is now walking with SBQC and only uses rollator with carry heavier objects in her home. 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 *Precautions: WBAT RLE Pain Assessment - Pain Description Pain Location: right hip and thigh Current Pain Intensity: 5-6/10 prior to and 2-3/10 after pain medication Interventions - Exercise/Activities/Manual Therapy Exercises/Activities: Assisted onto stationary bike for forward and retro revolution, 2mins. Patient assisted with gentle ROM of hip, knee, and ankle in short ranges. SAQ increased to 4#, 3s/10reps. Added 1# to SLR, 3s/5reps. SLR/VMO , 3s/5reps each. Red theraband for resistive ankle df and ham curl, Red theraband for short range hip abd and hip add, all 2s/10reps. Isometric hip add and isometric ankle inversion with hip IR, both with ball. In sitting, SAQ with 4#, bialteral knee ext with ball, and red theraband for ham curl. Standing hip abd and short hip ext with 1# weight to ankle, 2s/10reps each. Began leg press with 30#, and ankle df/pf 30#, multipe reps. Total minutes of Exercise: 39mins Manual Therapy: NA HOME EXERCISE PROGRAM: pt given written HEP including; SAQ, SLR, hip abd/add, LAQ, seated hip flex, isometric hip add - Charges Timed Code Treatment Minutes: 39mins Total Treatment Time: 42mins Procedures billed for this date of service:: EX3 Assessment: Patient progressing well with strengthening and to SBQC for community ambulation. She is motivated to progress back to PLOF. Patient Education: Body/Joint mechanics, Home Exercise Program Patient demonstrates compliance with HEP?: Yes Short Term Goals Goal #1: pt independent with initial HEP Progress towards Goal:: Met Goal #2: pt report increased ability to perform house hold chores with less pain Progress towards Goal:: Partially Met Goal #3: pt amb in dept without AD with decreased antalgic gait pattern Goal to be met by: 02/06/18 Progress towards Goal:: Partially Met Goal #4: Improve RLE strength 4/5 Goal to be met by: 02/06/18 Progress towards Goal:: Progressing Assisted Goals Goal #1: pt amb community distances without AD with no LOB Goal to be met by: 02/20/18 Progress towards goal: Progressing Goal #2: score on LE functional scale improved to >20 Goal to be met by: 02/20/18 Goal #3: pt report ability to return to normal activities with less pain Goal to be met by: 02/20/18 Progress towards goal: Progressing Goal #4: Improve RLE strength to 4 to 4+/5 Goal to be met by: 02/20/18 Plan PLAN OF CARE EXPIRES ON:: 02/20/18 ORDER # VISITS AND/OR THROUGH DATE: 02/20/18 PLAN: Progress with strengthening to return patient to PLOF.
--- NOTE | 2018-02-08 14:02 | RS.OPPTDN ---
Subjective Date of Note: 02/08/18 Visit #: 5 Date of Evaluation: 01/23/18 Payer Source: Medicaid Treatment Diagnosis: intertrochanteric femur fracture, s/p nailing Current Subjective/complaints:: Patient reports she gave her dogs a bath day before yesterday and has made her right leg sore. 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 States she is able to pace herself with her work and feels she is doing well. *Precautions: WBAT RLE Pain Assessment - Pain Description Pain Location: left hip and leg Current Pain Intensity: moderate Worst Pain Intensity: High this morning Other Comments regarding Pain:: Reports high level of pain this morning and she took pain medication. Interventions - Exercise/Activities/Manual Therapy Exercises/Activities: Patient assisted with gentle ROM of hip, knee, and ankle in short ranges. SAQ 4#, 3s/10reps. Increased to 2# to SLR, 2s/10reps. SLR/VMO, 2s/10reps. Green theraband for resistive ankle df and ham curl. Red theraband for short range hip abd and hip add, all 2s/10reps. Isometric hip add and isometric ankle inversion with hip IR, both with ball. In sitting, SAQ with 4#, bialteral knee ext with ball, and red theraband for ham curl. Standing hip abd, hip flexion, and short hip ext with 1# weight to ankle, 2s/10reps each. Leg press with 45#, and ankle df/pf 45#, multipe reps. Stationary bike alt forward and retro, 2mins. Total minutes of Exercise: 42mins Manual Therapy: NA HOME EXERCISE PROGRAM: pt given written HEP including; SAQ, SLR, hip abd/add, LAQ, seated hip flex, isometric hip add - Objective Findings Observations,measurements,etc.: Patient jayos amb short distances in the department with marked deviation. Patient has decreased stance phase and lateral upper body shift. - Charges Timed Code Treatment Minutes: 42mins Total Treatment Time: 44mins Procedures billed for this date of service:: EX3 Assessment: Patient jayos improvement in strength, but continues to report a high pain level. 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 Patient Education: Body/Joint mechanics, Home Exercise Program Comments: Patient education of proper position with standing exercise to facilitate right hip joint stability. Patient demonstrates compliance with HEP?: Yes Short Term Goals Goal #1: pt independent with initial HEP Progress towards Goal:: Met Goal #2: pt report increased ability to perform house hold chores with less pain Progress towards Goal:: Partially Met Goal #3: pt amb in dept without AD with decreased antalgic gait pattern Goal to be met by: 02/06/18 Progress towards Goal:: Partially Met Goal #4: Improve RLE strength 4/5 Goal to be met by: 02/06/18 Progress towards Goal:: Progressing Prison Goals Goal #1: pt amb community distances without AD with no LOB Goal to be met by: 02/20/18 Progress towards goal: Progressing Goal #2: score on LE functional scale improved to >20 Goal to be met by: 02/20/18 Goal #3: pt report ability to return to normal activities with less pain Goal to be met by: 02/20/18 Progress towards goal: Progressing Goal #4: Improve RLE strength to 4 to 4+/5 Goal to be met by: 02/20/18 Plan PLAN OF CARE EXPIRES ON:: 02/20/18 ORDER # VISITS AND/OR THROUGH DATE: 02/20/18 PLAN: Progress with strengthening to return patient to PLOF.
--- NOTE | 2018-02-13 10:50 | RS.OPPTDN ---
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 States she is more sore today and lower left leg has slightly more swelling. Patient agrees she is independent with current HEP and will continue following discharge. *Precautions: WBAT RLE Pain Assessment - Pain Description Pain Location: right hip Current Pain Intensity: mild to mod Other Comments regarding Pain:: Reports soreness right anterior hip Interventions - Exercise/Activities/Manual Therapy Exercises/Activities: Begins with 3mins stationary bike at moderate pace. Patient assisted with gentle ROM of hip, knee, and ankle in short ranges. SAQ increased to 5#, 3s/10reps. Increased to 2# to SLR, 2s/10reps. SLR/VMO, 2s/ 10reps. Green theraband for resistive ankle df and ham curl. Red theraband for short range hip abd and hip add, all 2s/10reps. Isometric hip add and isometric ankle inversion with hip IR, both with ball. In sitting, SAQ increased to 5#, bilateral knee ext with ball, and red theraband for ham curl. 2# for seated hip flexion, stopped at 10reps due to discomfort at groin. Standing hip abd, hip flexion, and short hip ext with 1# weight to ankle, 2s/10reps each. Leg press with 45#, and ankle df/pf 45#, multipe reps. Ended with standing resistive hip ext, hip add, and hip abd, 10reps each with red theraband. Total minutes of Exercise: 50mins Manual Therapy: NA HOME EXERCISE PROGRAM: pt given written HEP including; SAQ, SLR, hip abd/add, LAQ, seated hip flex, isometric hip add - Charges Timed Code Treatment Minutes: 50mins Total Treatment Time: 50mins Procedures billed for this date of service:: EX3 Assessment: Patient has met all goals, has returned to some of her work sites, and is independent with HEP. Patient Education: Home Exercise Program Comments: Finalized HEP and patient give red theraband for resistive strengthening. Patient demonstrates compliance with HEP?: Yes Short Term Goals Goal #1: pt independent with initial HEP Progress towards Goal:: Met Goal #2: pt report increased ability to perform house hold chores with less pain Progress towards Goal:: Met Goal #3: pt amb in dept without AD with decreased antalgic gait pattern Goal to be met by: 02/06/18 Progress towards Goal:: Met Comments:: Ambulates in hospital without AD. Goal #4: Improve RLE strength 4/5 Goal to be met by: 02/06/18 Progress towards Goal:: Met [employer] Goals Goal #1: pt amb community distances without AD with no LOB Goal to be met by: 02/20/18 Progress towards goal: Met Goal #2: score on LE functional scale improved to >20 Goal to be met by: 02/20/18 Progress towards goal: Met Goal #3: pt report ability to return to normal activities with less pain Goal to be met by: 02/20/18 Progress towards goal: Met Goal #4: Improve RLE strength to 4 to 4+/5 Goal to be met by: 02/20/18 Progress towards goal: Met Plan PLAN OF CARE EXPIRES ON:: 02/20/18 ORDER # VISITS AND/OR THROUGH DATE: 02/20/18 PLAN: Discharge with HEP.
--- NOTE | 2018-02-13 10:52 | RS.QUICKDC ---
Discharge from PT Date of Discharge: 02/12/18 Number of Visits: 6 Reason for Discharge: Patient progressed well and attended all 6 approved visits. She met all treatment goals, has returned to work at 2 of her job sites , and was independent with HEP. Discharge at this time with HEP.
== END 2018-02-24 23:59 ==
PROVIDERS: ATTEND Orthopaedic Surgery
DX: Z47.89 Encounter for other orthopedic aftercare (principal); M25.551 Pain in right hip; M62.81 Muscle weakness (generalized); R60.0 Localized edema

== ENCOUNTER 2018-02-18 09:10 | Outpatient (CLI) ==
[2017-12-06 18:23] VITALS: BMI 23.8
--- NOTE | 2018-02-18 11:27 | MAMMO ---
EXAM: Bilateral digital screening mammogram (2-D and 3-D) History: Screening Comparison: Bilateral mammogram 11/27/2016 Findings: MLO and CC views of bilateral breasts demonstrate scattered fibroglandular breast parenchy ma. CAD was reviewed by the radiologist. Tomosynthesis was performed. Stable benign lymph nodes wi thin the left breast. There are no dominant masses, no suspicious microcalcifications and no architec tural distortions Impression: Benign stable mammogram. Recommend followup routine screening mammography in 1 year. BIRADS 2
== END 2018-02-18 09:11 | disposition home or self-care (01) ==
LOC: RAD 09:10
PROVIDERS: ATTEND Nurse Practitioner Family
DX: Z12.31 Encounter for screening mammogram for malignant neoplasm of breast (principal)
CPT/HCPCS: 77067

== ENCOUNTER 2018-06-18 09:59 | Outpatient (CLI) ==
[2017-12-06 18:23] VITALS: BMI 23.8
== END 2018-06-18 10:00 | disposition home or self-care (01) ==
LOC: LAB 09:59
PROVIDERS: ATTEND Nurse Practitioner Family
DX: R23.2 Flushing (principal)
CPT/HCPCS: 36415; 80053; 80061; 82672; 83001; 83002; 85008; 85025

== ENCOUNTER 2018-06-20 15:13 | Outpatient (CLI) ==
[2017-12-06 18:23] VITALS: BMI 23.8
== END 2018-06-20 15:14 | disposition home or self-care (01) ==
LOC: RHC-LAB 15:13
PROVIDERS: ATTEND Nurse Practitioner Family
DX: R05 Cough (principal); J02.9 Acute pharyngitis, unspecified
CPT/HCPCS: 87502; 87651

== ENCOUNTER 2018-07-26 12:08 | Outpatient (CLI) ==
[2017-12-06 18:23] VITALS: BMI 23.8
--- NOTE | 2018-07-27 10:06 | MRI ---
EXAM: MRI cervical spine without IV contrast. DATE: 26 July 2018. HISTORY: C-spine pain. Degenerative disc disease. TECHNIQUE: Sagittal and axial T1W and T2W sequences of the cervical spine along with sagittal IR and coronal T2W sequences were obtained using 1.5 Luli magnet. No IV contrast. COMPARISON: C-spine series 02/07/2015. MRI C-spine [address] C-spine 30 January 2015. FINDINGS: Minimal leftward curvature of the mid cervical spine is observed. No acute c-spine fractu re, subluxation, osseous malignancy, or jumped facet is evident. Cervical vertebrae normal in height . Bone marrow signal is normal. Tiny anterior osteophytes are present at C6-7. Intervertebral disc s are normal in height. Cervical spinal cord is flattened anteriorly at C5-6 and C6-7. No syrinx, c ord edema, myelomalacia, or neoplasm is evident. Visible brainstem is normal. There is no Chiari 1 malformation. No pituitary malignancy is evident. Trachea, vocal cords, epiglottis are normal. Near the posterosuperior margin of the left false voc al cord, there is asymmetric soft tissue thickening in the larynx measuring approximately 3.6 mm AP x 7 mm transverse. No thyroid, submandibular, or parotid gland neoplasm is evident. No suspicious ne ck mass, cervical lymphadenopathy, apical lung mass, pneumonia, or pleural effusion is demonstrated. Segmental analysis: C2-3: Normal. C3-4: Minimal posterior disc bulge (1.2 mm AP) does not contact the cord. Canal is 9.4 mm AP. Bin r left foraminal narrowing is due to uncinate hypertrophy. C4-5: Small posterior disc bulge (1.6 mm AP) does not contact the cord. Canal is 8.6 mm AP. Each f oramen is patent. C5-6: Broad posterior disc/osteophyte complex (3 mm AP) flattens the cord anteriorly. Canal is 6 x 3 mm AP at the disc space level. Superimposed midline disc extrusion (2.7 mm AP x 5 mm transverse x 6 mm behind the C6 superior endplate) causes moderate to marked central canal stenosis and cord cesilia ening posterior to the C6 body. Each foramen is patent. C6-7: Broad posterior disc/osteophyte complex (3.9 mm AP) flattens the cord against the posterior wa ll of the canal. Canal is 5.2 mm AP. Each foramen is patent. C7-T1: Normal. T1-2: Small posterior disc/osteophyte complex (1.7 mm AP) does not contact the cord. Canal is 9.2 m m AP. Each foramen is patent. IMPRESSIONS: 1. C-spine minor spondylosis and multilevel DDD. 2. Minor left foraminal stenosis at C3-4. 3. Multilevel central canal stenoses (C3-4: Mild. C4-5: Mild. C5-6: Marked. C6-7: Severe. T1-2: Mild). 4. Cord flattening at C5-6 and C6-7. No syrinx or myelomalacia. Unexpected findin. Small area of soft tissue thickening near the posterosuperior margin of the left false vocal cord appears slightly more prominent compared to November 2014. Recommend direct visual ization.
== END 2018-07-26 12:09 | disposition home or self-care (01) ==
LOC: RAD 12:08
PROVIDERS: ATTEND Pain Medicine Interventional Pain Medicine
DX: M50.123 Cervical disc disorder at C6-C7 level with radiculopathy (principal); M48.02 Spinal stenosis, cervical region; M47.812 Spondylosis without myelopathy or radiculopathy, cervical region

== ENCOUNTER 2018-10-17 10:32 | Inpatient (IN) ==
--- NOTE | 2018-10-17 11:54 | CT ---
EXAM: CT abdomen pelvis without contrast HISTORY: Abdominal pain COMPARISON: None TECHNIQUE: CT abdomen pelvis performed without intravenous contrast. Coronal and sagittal reformatt ed images obtained FINDINGS: Mild bibasilar atelectasis. No free air. No acute abnormalities of the bones. Degenerat marcia change in the spine. Right femoral ORIF. Heart top normal in size. Nodular contour of the live r suggested. Liver diffusely decreased in density. Gallbladder unremarkable. Stranding in the panc reatic head. Inflammatory stranding surrounding the pancreas, greatest in the pancreatic head region , with a cystic lesion in the pancreatic head measuring 2.9 cm, likely pseudocyst. Spleen unremarka ble. Adrenals unremarkable. Multiple bilateral nonobstructing renal calculi measuring up to 5 mm. No hydronephrosis. No calculi visualized in normal course of the ureters. Aorta normal in caliber. Bladder only mildly distended and poorly evaluated, grossly unremarkable. Uterus uterus unremarkabl e. Small fat-containing periumbilical hernia. No ascites. Stomach unremarkable. No dilated loops small bowel. Appendix appears normal. Colon unremarkable. Several mildly prominent terry hepatic ly mph nodes. IMPRESSION: 1. Acute pancreatitis. 2.9 cm cystic lesion in the pancreatic head likely represents a pseudocyst. Recommend correlation with non-emergent MRI pancreatic protocol. 2. Suggestion of cirrhotic configuration of the liver. Hepatic steatosis. 3. Several mildly prominent terry hepatic lymph nodes, nonspecific, though can be seen in underlying liver disease. 4. Bilateral nephrolithiasis. No hydronephrosis.
[2018-10-17] MEDS ORDERED: MORPHINE 4 MG/ML SYRINGE IVP STA (12:29)
[2018-10-17] MEDS ORDERED: ZOFRAN 4 MG/2 ML IVP STA (12:29)
[2018-10-17] MEDS ORDERED: SODIUM CHLORIDE 1,000 ML IV SCH (12:30)
--- NOTE | 2018-10-17 12:32 | ED.PDOC ---
General ED Provider: Dr. LESLEY TAYLOR Chief Complaint: Abdominal Pain Stated Complaint: epigastric ABDOMINAL PAIN Time Seen by Physician: 10:40 (SEEN WITH NURSE AT ALL TIMES ) Mode of Arrival: Walk-In Information Source: Patient Exam Limitations: No limitations Primary Care Provider: DEAN ESTRADA Nursing and Triage Documentation Reviewed and Agree: Yes Does patient meet sepsis criteria?: No System Inflammatory Response Syndrome: Not Applicable Sepsis Protocol: For patient's 13 years and over: Temp is 96.8 and below OR 101 and greater Pulse >90 BPM Resp >20/minute Acutely Altered Mental Status Are patient's symptoms suggestive of a new infection, such as: -Pneumonia -Skin, Soft Tissue -Endocarditis -UTI -Bone, Joint Infection -Implantable Device -Acute Abdominal Infection -Wound Infection -Meningitis -Blood Stream Catheter Infection -Unknown GI Complaint Exam - Abdominal Pain Complaint/Exam Onset: Gradual Duration: 1 DAY Symptoms Are: Still present Timing: Constant Initial Severity: Moderate Current Severity: Moderate Location of Pain: Epigastric Radiates To: Denies: Chest, Back, Flank, LLQ, RLQ Character: Reports: Aching Aggravating: Reports: None Alleviating: Reports: None Associated Signs and Symptoms: Denies: Diaphoresis, Fever, Cough, Chest pain, Dizziness, Back pain, Constipation, Blood in stool, Dysuria, Urinary frequency, Decreased urine output, Decreased appetite, Vaginal bleeding, Vaginal discharge , Nausea, Vomiting, Diarrhea, Sore throat, Decreased activity Related History: Reports: Similar episode AAA Risk Factors: Reports: None Cardiac Risk Factors: Reports: None Ectopic Risk Factors: Reports: None Ovarian Torsion Risk Factors: Reports: None Surgical Obstruction Risk Factors: Reports: None Related Surgical History: Reports: None Patient Rh Status: Unknown Abdominal Findings: Present: None Differential Diagnoses: Appendicitis, Bowel Obstruction, Constipation, Diverticulitis, Hepatitis, Pancreatitis Review of Systems - Review Of Systems Constitutional: Reports: No symptoms Eyes: Reports: No symptoms Ears, Nose, Mouth, Throat: Reports: No symptoms Respiratory: Reports: No symptoms Cardiac: Reports: No symptoms GI: Reports: No symptoms : Reports: No symptoms Musculoskeletal: Reports: No symptoms Skin: Reports: No symptoms Neurological: Reports: No symptoms Endocrine: Reports: No symptoms Hematologic/Lymphatic: Reports: No symptoms All Other Systems: Reviewed and Negative Past Medical History - Past Medical History Previously Healthy: Yes Endocrine: Reports: None Cardiovascular: Reports: None Respiratory: Reports: None Hematological: Reports: None Gastrointestinal: Reports: Pancreatitis Genitourinary: Reports: None Neuro/Psych: Reports: Other (CERVICAL STENOSIS- NECK) Musculoskeletal: Reports: None, Back Pain (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) Cancer: Reports: None Last Menstrual Period: years ago - Surgical History General Surgical History: Reports: None - Family History Family History: Reports: Unknown - Social History Smoking Status: Current every day smoker Hx Substance Use: No Alcohol Screening: Occasionally - Immunizations Tetanus Shot up to Date: Yes Influenza Vaccine within 12 Months: No Pneumococcal Vaccine up to Date: No Physical Exam - Physical Exam Appearance: Well-appearing, No pain distress, Well-nourished Eyes: RADHA, EOMI, Conjunctiva clear ENT: Ears normal, Nose normal, Oropharynx normal Respiratory: Airway patent, Breath sounds clear, Breath sounds equal, Respirations nonlabored Cardiovascular: RRR, Pulses normal, No rub, No murmur GI/: Soft, Nontender, No masses, Bowel sounds normal, No Organomegaly Musculoskeletal: Normal strength, ROM intact, No edema, No calf tenderness Skin: Warm, Dry, Normal color Neurological: Sensation intact, Motor intact, Reflexes intact, Cranial nerves intact, Alert, Oriented Psychiatric: Affect appropriate, Mood appropriate Critical Care Note - Critical Care Note Total Time (mins): 0 Course - Course Hematology/Chemistry: 10/17/18 11:05 10/17/18 11:55 Orders, Labs, Meds: Lab Review 10/17/18 10/17/18 10/17/18 11:05 11:10 11:55 WBC 9.68 RBC 4.39 Hgb 15.8 Hct 46.2 MCV 105.2 H MCH 36.0 H MCHC 34.2 RDW Coeff of Mee 13.7 Plt Count 151 Immature Gran % (Auto) 0.5 Neut % (Auto) 73.2 Lymph % (Auto) 18.8 Martin % (Auto) 6.9 Eos % (Auto) 0.3 Baso % (Auto) 0.3 Immature Gran # (Auto) 0.1 Neut # (Auto) 7.1 H Lymph # (Auto) 1.8 Martin # (Auto) 0.7 Eos # (Auto) 0.0 Baso # (Auto) 0.0 Sodium 137.2 Potassium 3.09 L Chloride 102.4 Carbon Dioxide 26.6 Anion Gap 11.29 BUN 12.3 Creatinine 0.62 Estimated GFR (MDRD) 103.00 BUN/Creatinine Ratio 19.83 Glucose 112.9 H Calcium 9.28 Total Bilirubin 1.07 AST 64.2 H ALT 39.6 H Alkaline Phosphatase 109.8 Total Protein 6.75 Albumin 4.23 Globulin 2.52 Albumin/Globulin Ratio 1.67 Amylase 102.4 Lipase 1124.2 H Urine Color Yellow Urine Clarity Slightly Urine pH 7.0 Ur Specific Fancy Gap 1.015 Urine Protein Negative Urine Glucose (UA) Negative Urine Ketones Negative Urine Blood Negative Urine Nitrite Negative Urine Bilirubin Negative Urine Urobilinogen 0.2 Ur Leukocyte Esterase Negative Urine Microscopic WBC 0-2 Ur Squamous Epith Cells Not present Calcium Oxalate Crystal Trace Amorphous Sediment 2+ Orders Category Date Time Status AMYLASE Stat LAB 10/17/18 10:43 Ordered CBC W/ AUTO DIFF Stat LAB 10/17/18 10:43 Ordered COMPREHENSIVE METABOLIC PANEL Stat LAB 10/17/18 10:43 Ordered LIPASE Stat LAB 10/17/18 10:43 Ordered URINALYSIS C & S IF INDICATED Stat LAB 10/17/18 10:[address] ABDOMEN/PELVIS WO CONTRAST Stat RADS 10/17/18 10:43 Ordered Vital Signs: Temp Pulse Resp BP Pulse Ox 10/17/18 10:32 97.9 F 64 14 146/88 H 98 Departure - Departure Time of Disposition: 12:33 Disposition: HOME SELF-CARE Discharge Problem: Abdominal pain Pancreatitis Qualifiers: Chronicity: acute Pancreatitis type: alcohol induced Acute pancreatitis complication: unspecified Qualified Code(s): K85.20 - Alcohol induced acute pancreatitis without necrosis or infection Instructions: Pancreatitis (ED) Condition: Good Pt referred to PMD for follow-up: Yes IPMP verified?: No Additional Instructions: Please call your Family Physician as soon as possible to schedule a follow-up appointment. Allergies/Adverse Reactions: Allergies levofloxacin [From Levaquin] Adverse Reaction (Verified 10/17/18 11:21) sulfamethoxazole [From Bactrim] Adverse Reaction (Verified 10/17/18 11:21) trimethoprim [From Bactrim] Adverse Reaction (Verified 10/17/18 11:21) levofloxacin Adverse Reaction (Uncoded 12/06/17 16:47) tegaderm film Adverse Reaction (Uncoded 12/06/17 16:56) Home Medications: Ambulatory Orders Oxycodone HCl/Acetaminophen [Oxycodon-Acetaminophen 7.5-325] 7.5 mg PO TID 06/20 Ibuprofen 800 mg PO BID PRN 07/05/16 Gabapentin [Neurontin] 300 mg PO QID PRN 03/10/17
[2018-10-17 15:13] VITALS: BMI 24.3
[2018-10-17] MEDS ORDERED: LACTATED RINGERS 1,000 ML IV SCH (15:30)
[2018-10-17] MEDS ORDERED: DILAUDID 1 MG/ML SYRINGE ONE (15:35)
[2018-10-17] MEDS ORDERED: NICODERM 21 MG TD ONE (15:35)
[2018-10-17] MEDS: NICODERM 21 MG TD SCH (15:45)
[2018-10-17] MEDS: DEXTROSE 5%-LR IV SOLUTION 1,000 ML IV SCH ×2 (16:10→23:15)
[2018-10-17] MEDS: DILAUDID 1 MG/ML SYRINGE IVP PRN ×2 (18:52→22:01)
[2018-10-18] MEDS: DILAUDID 1 MG/ML SYRINGE IVP PRN ×7 (01:03→23:18)
[2018-10-18] MEDS: DEXTROSE 5%-LR IV SOLUTION 1,000 ML IV SCH ×2 (05:36→12:03)
--- NOTE | 2018-10-18 09:55 | HP ---
DATE OF SERVICE: 10/17/18 CHIEF COMPLAINT: Upper abdominal pain, chest pain and nausea. HISTORY OF PRESENT ILLNESS: Ms. Overton reports that she awoke at 1 a.m. today with severe epigastric pain and pain that radiated into her chest. She rates the pain currently at a level 9 on a scale of 1 to 10. She reports that the pain continued to get worse therefore she presented to the Emergency Department to be evaluated. She complains of nausea. She has not had any emesis, denies any diarrhea. Denies any blood in her stool. Denies any constipation. She does have a longstanding history of pancreatitis. Her last admission found in our records was in 2017. She was admitted per Dr. Terry for acute pancreatitis. She reports that she has an episode of acute pancreatitis at least twice a year. She admits this is her third hospital stay for acute pancreatitis and when she has to come to the hospital it is very severe. She does have a significant history of gastroesophageal reflux disease and does take Zantac as needed for reflux symptoms. Other than the reflux and pancreatitis she denies any other gastrointestinal history. A CT scan of the abdomen and pelvis was completed in the emergency department and does show an acute pancreatitis with a 2.9 cm cystic lesion in the pancreatic head likely represents a pseudocyst with recommendation/correlation with a nonemergent MRI pancreatic protocol and a suggestion of cirrhotic configuration of the liver, hepatic steatosis. After further questioning, the patient does report she does have a history of fatty liver. It also showed several mildly prominent terry hepatic lymph nodes, nonspecific though can be seen in underlying liver disease. Also reveals bilateral nephrolithiasis and no hydronephrosis. Labs were reviewed. Her white count was normal. Hemoglobin/hematocrit were normal. Platelet count normal at 151. Sodium normal at 137.2, potassium low at 3.09, BUN normal at 12.3. Creatinine 0.62. Her glucose is 112.9. AST 64.2, ALT 39.6. Amylase 102.4 and lipase 1124.2. UA was within normal limits. Upon evaluation the patient complains of severe pain. She is crying, very tearful and emotional requesting something stronger to help with pain. She does report that she received Morphine in the emergency department and that it did not "touch the pain". She admits that the only thing that typically works to help the severity of the pain is Dilaudid and she would like a dosage of Dilaudid to help with her pain. PAST MEDICAL HISTORY: The patient reports a history of chronic neck pain, herniated disk of the neck and back. According to past review of records she does have a history of pneumonia as well as chronic headaches. Also listed is a report of hypertension in the past. She does have a history of pancreatitis as well as gastroesophageal reflux disease. She does have a history of continued nicotine use. PAST SURGICAL HISTORY: Includes a femur surgery last summer for a femur fracture. FAMILY HISTORY: She reports her father had a history of [place] and history of cancer and in his 80s with congestive heart failure. She reports that she does not know much of a history at all with her mother. SOCIAL HISTORY: She does smoke. She reports 1/2 pack of cigarettes per day to one pack of cigarettes per day. She does report social ETOH use and denies any substance abuse. MEDICATIONS: (HOME) Oxycodone 7.5 mg three times a day as needed for pain Ibuprofen 800 mg twice a day p.r.n. pain Neurontin 400 mg four times a day as needed for pain Clobetasol cream 0.05% topical twice a day as needed Ketoconazole 15 gm cream 2% topical daily for two weeks as needed Zantac 300 mg tablet daily as needed for reflux ALLERGIES: LEVAQUIN, BACTRIM, TEGADERM REVIEW OF SYSTEMS: CONSTITUTIONAL: Denies any fever. Denies chills. Denies weakness or fatigue. HEENT: Within normal limits without any complaints of headaches. Denies nasal drainage or sore throat. ENDOCRINE: No reports of weight gain or weight loss. CARDIOVASCULAR: No reports of chest pain, shortness of breath. Denies any complaints of lower extremity edema. RESPIRATORY: Denies any complaints of shortness of breath. Denies any cough, recent upper respiratory infection. GASTROINTESTINAL: As noted above. She does complain of nausea, epigastric pain ranked as severe, level 9 on a scale of 1 to 10. Denies any complaints of constipation, blood in her stool or diarrhea. GENITOURINARY: No reports of dysuria, hematuria or urinary frequency. MUSCULOSKELETAL: She does report chronic neck and back pain from disk bulging. Also reports a history of a femur surgery with a hip surgery from a fracture and reports chronic hip, neck and back pain. PSYCHIATRIC: The patient very anxious on the visit today due to the severity of pain. No reports of depression. No reports of suicidal thoughts or homicidal thoughts. SKIN: Intact without any open lesions. PHYSICAL EXAMINATION: VITAL SIGNS: BP 146/88, pulse rate 64, blood pressure 146/88, respiratory rate 14, height 5'7", weight 156 lbs. GENERAL: She is very anxious and in pain. She is laying in the bed and again she is in acute pain with pancreatitis and abdominal discomfort. HEAD: Atraumatic, normocephalic. EYES: Pupils equal/reactive to light. Conjunctivae not pale. Sclerae not icteric. THROAT: No inflammation, tumors or exudate. NECK: No masses. No bruit. No tenderness. No rigidity. No lymphadenopathy. No thyromegaly. HEART: Normal sinus rhythm. Regular rate and rhytmn. No murmur auscultated. No lower extremity edema. Peripheral pulses are palpable. LUNGS: Clear. The patient is unable to take a deep breath due to the pain. ABDOMEN: Soft, tender diffusely. Bowel sounds are positive in all four quadrants. She does have guarding to her abdomen. No masses appreciated. No bruits. EXTREMITIES: No edema, no cyanosis, no clubbing. MUSCULOSKELETAL: Normal joints, no swelling. NEUROLOGIC: The patient is alert, oriented to able to answer questions appropriately. SKIN: Intact, no open lesions. LYMPHATIC: No lymph nodes palpable. LABS: As mentioned above. White count is normal. Hemoglobin and hematocrit are within normal limits. Platelets within normal limits. BUN normal. Creatinine normal at 0.62. Her amylase 102 and her lipase 1124.2. As mentioned above her CT scan was concerning for an acute appendicitis with a 2.9 cm cystic lesion with recommendations for nonemergent MRI, pancreatic protochol. Also was suggested of a cirrhotic configuration of the liver with hepatic steatosis. ASSESSMENT: 1. ACUTE PANCREATITIS 2. ABDOMINAL PAIN WITH NAUSEA 3. HYPOKALEMIA 4. CHRONIC NECK AND BACK PAIN 5. HISTORY OF GASTROESOPHAGEAL REFLUX DISEASE 6. TOBACCO USE PLAN: 1. Keep the patient NPO except ice chips. 2. Medicate the patient with IV pain control to help alleviate the pain. 3. Start on D5 LR at 150 cc/hr for IV hydration. 4. We will hold home medications at this time until I review with Dr. Espinal. 5. The patient defers telemetry monitoring. This has been noted and this has been discontinued from the patient. 6. We will follow labs on this patient and keep this patient comfortable with pain control. 7. Further orders and recommendations per Dr. Espinal. TIME SPENT: GREATER THAN 65 MINUTES MTDD
[2018-10-18] MEDS ORDERED: DEXTROSE 5%-LR IV SOLUTION 1,000 ML IV SCH (13:00)
[2018-10-18] MEDS: LOVENOX SUBCUT SCH ×2 (15:31→15:38)
[2018-10-18] MEDS ORDERED: D5%-NS-KCL 20 MEQ/L IV SOL 1,000 ML IV SCH (19:00)
[2018-10-18] MEDS ORDERED: D5%-1/2NS-KCL 40 MEQ/L IV SOL 1,000 ML IV SCH (19:09)
[2018-10-19] MEDS: NICODERM 21 MG TD SCH ×2 (00:24→08:52)
[2018-10-19] MEDS: DILAUDID 1 MG/ML SYRINGE IVP PRN ×5 (04:53→21:31)
[2018-10-19] MEDS: D5%-1/2NS-KCL 40 MEQ/L IV SOL 1,000 ML IV SCH ×2 (08:31→21:37)
[2018-10-19] MEDS: LOVENOX SUBCUT SCH (08:52)
[2018-10-20] MEDS: DILAUDID 1 MG/ML SYRINGE IVP PRN ×3 (00:26→08:05)
[2018-10-20] MEDS: LOVENOX SUBCUT SCH (09:49)
[2018-10-20] MEDS: NICODERM 21 MG TD SCH (09:49)
[2018-10-20 10:07] VITALS: BP 139/93; TEMP 98
--- NOTE | 2018-10-23 13:40 | PN ---
DATE OF SERVICE: 10/18/18 SUBJECTIVE: The patient presented to the emergency room 10/17/18 at 10:32am. A workup was done by the emergency room physician Dr. Valdez. Dr. Valdez did mention to me that there is a patient that has acute pancreatitis recurrent and requires admission. The patient was discharged from the emergency room 10/17/18 at 1: 59pm. I went to the see the patient in the emergency room prior to her transfer to the floor. I did ask the patient and told her that I would be her doctor and asked her what brought her to the emergency room. She told me that she has pancreatitis. She also told me that she woke up with abdominal pain and she usually can control the pain and not come to the emergency room. The patient however is not cooperative as to answering questions. She also is not cooperative with the examination. She points to the epigastric area as the area of pain. The lower abdomen as no remarkable tenderness and the bowel sounds were active. LUNGS: Breath sound somewhat diminished but unable to adequately categorized since she would not take a deep breath because of the pain. The patient's is uncooperative as well as her facial expression and attitude. She wanted pain medication and I recurred to the emergency room physician. She was just given a pain medication by the nurse. The patient objects to being examined in the upper abdomen in the upper abdomen because of the pain. The patient's serum amylase and is normal, within the upper range and the lipase is elevated. A CAT of the abdomen and pelvis did show findings compatible with acute pancreatitis. The patient did tell me that she had been to Pain Management recently for injection to her neck. I asked her if she had injured her neck and did not get an answer to that but she told me she was in the emergency room and Dr. Dos Santos x-rayed or did a CAT scan of her neck and has a herniated disc. She does go to Pain Management. We will review her previous admissions as to the cause of the recurrent pancreatitis. The patient does indicate that she had this problem when I asked her what was the reason why she came to the emergency room and she told me it was because of her pancreatitis. SANJUANA
--- NOTE | 2018-10-23 14:30 | PN ---
DATE OF SERVICE: 10/18/18 with Ashtyn Garcia, Room 109 SUBJECTIVE: She was asked on how she is and claimed that she is better. She did tell her that her enzymes are lower than yesterday. They are returning towards normal. She rated her pain at 6 when Ashtyn asked her. I tried to examine her foot and she claimed that I was rough taking her socks off. I wasn't and tried to get her socks to feel her pulses. Also tried to palpate the posterior leg for any pain or tenderness. The patient told me that I was rough. I did tell her that we are trying to examine her and I proceeded to listen to her chest and again she would not cooperate and she would not take a deep breath claiming that she is not able to because of the abdominal pain. The patient does not want to answer any questions. I needed to ask more questions and see what the reason for the recurrent pancreatitis. The patient mentioned that she does not drink accept occasionally maybe once a month and maybe two drinks. I asked whether it' s beer or hard liquor and I did not get a good answer with that. I am trying to see whether the pancreatitis is triggered by medication, food or alcohol. The patient looking at the previous record had a recurrent pancreatitis diagnosis on 2013 and had an MRI of the abdomen and pelvis and had seen apparently a GI doctor, Dr. Gonzalez. The patient had a very low potassium at one time recorded 2.46. The patient's CBC was significant for an elevated MCV and MCH and a slightly lower plt count on repeat examination, 151 to 117. The RDW is normal. The AST and ALT was slightly elevated yesterday and the ALT has returned to normal and the AST is near normal. Alkaline phosphatase was normal on both determinations. The amylase is 102.4 and today was 89.9 and lipase was 1 ,124.2 yesterday and it is 583 today. Upper normal for the Lipase is 300. Urinalysis was unremarkable. The urine drug screen was positive for opioids and oxycodone. Her home medications listed were oxycodone, Ibuprofen, Gabapentin, Clobetasol cream, Ketoconazole cream and Ranitidine. We will add Potassium to the IV but the Potassium is slightly lower today but never as low as she had back in 2014. Reason the Alkaline phosphatase was elevated 4.5 years ago is now normal. Given as to whether there is any connection to the recurrent pancreatitis or what triggers the pancreatitis. We will get a lipid panel from the initial blood from the emergency room to see if the triglyceride is high. I did look back into the CT scan of the this patient on 07/13/16 it already mentioned a pseudocyst at the head of the pancreatis, pyelonephritis during that admission and a CT scan January 2017 showed a pancreatitis. The pseudocyst measured at 1.3x 2.4cm. CT scan done 04/21/17 showed pseudocyst now measure 3.3x 3.1 and the cyst now is measured at 2.9cm. All three scans showed findings compatible with cirrhosis of the liver with hepatic steatosis. Mildly predominate hepatic lymph nodes. Seemed to be secondary to the underline liver disease. We will see what the serum amylase and lipase tomorrow and also her vital signs. The patient's temperature had been normal. Her blood pressure slightly elevated. Her oxygen saturation was between 99 to 100, respiratory rate between 16 to 20. The patient will be given a blood pressure medications probably Lisinopril 10mg daily. The patient's allergies were just Levofloxacin, Sulfa, Trimethoprim and also has some reaction to Tegaderm. This admission allergies notes were reviewed and the patient was noted to have allergy to Levofloxacin and Sulfa. GEOD
--- NOTE | 2018-10-23 14:48 | PN ---
DATE OF SERVICE: 10/19/18 SUBJECTIVE: The patient is seen today in the presence of Sharona Zamora. I had brought copies of the labs from previous and also the present admission. The patient was a bit more cooperative today then the previous days. The patient did tell me that she had been diagnosed with pancreatitis before 2013 or that the time she was diagnosed. She had the problems but never had been diagnosed. The patient had seen a GI doctor, Dr. Gonzalez as well as a doctor in [place]. The patient obviously had an endoscopic ultrasound. She was initially told that she would have a biopsied but that was not performed. I asked about cause of the pancreatitis and also the recurrent pancreatitis and she told me that she had never been told as to what caused the pancreatitis. I asked her if she was drinking more than and in the 2013 era and she told me she did. She is now drinking about once a month about 1-2 shots. She is also getting an injection of Cortizone from the [facility] as well as the pain medication for her neck problems. She was given an injection last Sunday, 6 days to 10/19/18. I do not have any of those records. I told her that the pancreatic enzymes indicating pancreatitis has return to normal and we will progress her diet to a full liquid and low fat. She does tell me that when she has this pain at home that she would not eat very much for 7 days. Also inform her that her liver enzymes were elevated and it was elevated in the previous admission. She had elevation of the AST and the ALT as well as Alkaline Phosphatase. The Alkaline Phosphatase as returned to normal. The patient's hepatis panel this admission is negative. The patient's claims that the pain is mostly in the epigastric area. She puts her hand over so I am not able to exam at all. The lower abdomen below the umbilicus is soft and not tender and bowel sounds are active. LUNGS: Clear to auscultation also diminished. The patient does not want to take a deep breath. Before 10/19/18 the patient refused to take a deep breath. She claims that it has pain. The patient however every time I walked into the room does not show any facial expressions of pain or discomfort. Her disposition is most sour. She wanted a copy of the tests that were done so I gave her the copy that I had in hand. SANJUANA
--- NOTE | 2018-10-24 11:31 | PN ---
DATE OF SERVICE: 10/20/18 SUBJECTIVE: The patient on rounds today with Sharona Zamora. I asked her how she was doing today and did not answer the question. I did inform her that her temperature has been normal and her blood pressure is normal and the blood test now has reduced further down to normal and it had been normal yesterday and this one is lower down that indicates an inflammation or irritation in the pancreas. She never did run a fever and her Potassium is now normal although her liver enzymes is still elevated but has been elevated in the previous admissions. The reason for those I am not certain and maybe related to the liver cirrhosis or hepatic steatosis. Her Hepatis panel is negative acute during this admission. LUNGS: Clear to auscultation although diminished. I did inform the patient that I plan to discharge her today since the things has improved remarkably and she could continue what she had done at home, not eating very much. She could follow with Ashley Ibrahim this coming Sunday and if she has anymore further problems that she can return to the emergency room. The patient abruptly stopped the conversation when I told her that I plan to discharge her and she put her legs on the floor on the side of the bed and would not hear anything anymore. Mrs. Zamora was present in the course of this event. I had told Ms. Overton that I would give her a prescription of Potassium since her Potassium always goes down and she told that nobody had given her a prescription. I am not also certain as to why the Potassium goes down. This patient would have to cooperate for detail history about medications, intake of food and what kind and when does she get the abdominal pain. She told me that she came to the hospital this time since she was not able to stop the pain which she always was able to do most of the time at home. The patient is to resume all her previous medications and I instructed that to the nurse. She is given a prescription for K-Dur 20meq daily and to see Ashley Ibrahim as early as Sunday and to ER if there any need before then. DIAGNOSIS: Acute pancreatis etiology undetermined. She had been to some specialist and still has the same problems. SANJUANA
--- NOTE | 2018-10-25 12:43 | DS ---
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 The pain was in the upper abdomen mostly in the epigastric area. I did see this patient before she was transferred to the floor and did ask her what the reason for her coming to the emergency room and told me that she has pancreatitis. Also told me that most of the time she is able to control the pain at home without coming to the hospital. The patient at the get go however was not very cooperative for examination. She would no take a deep breath because of the abdominal pain. Breath sounds are diminished. Lower abdomen was nontender. HOSPITAL COURSE: The work up during this hospitalized beginning from the emergency room consisted of CBC times four with persistently normal WBC, slightly lower red blood cells, normal hgb and hct and fluctuated between 13.2 to 15.8. 15.8 was admission. MCV elevated fluctuated from 105.2 to 106.6 on discharge and MCH from 36.0 to 37.2. RDW normal. Plt count normal on admission decreased to 117 on the second hospital day and 112 on the third and on 10/20/18 did rise to 129. The patient's electrolyte showed lower Potassium on admission and had been low previously and the patient was given replacement but claimed that she never was prescribed the Potassium. The patient was given intervenous fluids for the electrolyte replacement including Potassium. The Potassium had gradually risen towards normal and the Potassium on discharge was 3.83. BUN and creatinine were normal and the EGFR had fluctuated between 103 to 157. Blood sugar was slightly elevated on admission to normal. The Calcium was normal, total bilirubin slightly elevated on discharge 1.54 and AST 97.2 and ALT 53.0. These were also elevated on admission. This patient's previous labs also showed elevation of the AST and ALT including Alkaline Phosphatase. The Alkaline Phosphatase however during this admission is normal. Serum amylase was normal at the beginning 102.4, 89.9 the next day 10/18/18 and 55.3 on 10/19/18 and 42 on 10/20 discharge day. The lipase began at 1,124.2 and on 10/18/18 did come down to 583.3 and on 10/19/18 it came down to normal 259 upper limit is 300 and on 10/20 the lipase is 254.4. The patient had been afebrile throughout this admission. Acute hepatitis panel was requested and all were negative. Told me that she was never told about the cause of the pancreatitis. She had seen Dr. Gonzalez a GI specialist and had been to [place] for a endoscopic retrograde. Drug screen during this admission showed positive for Opioids and Oxycodone. The patient was given a clear liquid diet after being NPO and on supper time the patient did consume 50% of the liquid diet. 10/19/18 the patient has 50% of breakfast, 50% lunch and 50% of supper. The diet was increased to full liquid low fat on 10/19/18. The patient on 10/20/18 had a 50% breakfast. The oral intake on 10/19/18 was 1,390 and the oral intake on not the whole day was 680. I made my rounds with Sharona Zamora RN who was in charge of this patient. I asked the patient how she is and she did not answer me. I proceeded to listen to her chest and the lungs were clear to auscultation but diminished breath sounds because she is not taking a deep breath. I did mention to her that all her labs have returned to normal since yesterday and further down towards normal today. I plan to discharge her today. At that point the patient did not like being discharged and stopped talking to me. She sat up in the bed with her legs down on the side. The patient always had been uncooperative right from the beginning. The patient is then discharged today to see Ashley Ibrahim by Sunday and may return to the emergency room if there is any concern. She was prescribed K-Dur 20meq tablet daily. She should resume her medications. FINAL DIAGNOSES: 1. Acute pancreatitis, resolving, recurrent 2. Hepatitis etiology undetermined 3. History of recurrent hypokalemia, corrected this time 4. Chronic neck and back pain, recently given a Cortizone injection, a few days before admission 5. History of GERD 6. Chronic tobacco use and abuse persistent PROGNOSIS: Guarded This patient is uncooperative towards her medical care. She doesn't cooperative during the physical examination. TIME SPENT: GREATER THAN 30 MINUTES MTDD
== END 2018-10-20 13:25 | disposition home or self-care (01) | DRG 440 ==
LOC: ED 10:32 → MEDSURG A 12:31
PROVIDERS: ADMIT General Practice; ATTEND General Practice
DX: K85.20 Alcohol induced acute pancreatitis without necrosis or infection (principal); K85.90 Acute pancreatitis without necrosis or infection, unspecified; E87.6 Hypokalemia; M54.9 Dorsalgia, unspecified; M54.2 Cervicalgia; K21.9 Gastro-esophageal reflux disease without esophagitis; R11.0 Nausea; R10.13 Epigastric pain; Z72.0 Tobacco use
CPT/HCPCS: 36415; 80053; 80074; 80306; 81001; 82150; 83690; 85008; 85025; 96361; 96374; 99284

== ENCOUNTER 2019-01-28 09:45 | Outpatient (CLI) | END 2019-01-28 09:46 | disposition home or self-care (01) | LOC: RHC-LAB 09:45 | PROVIDERS: ATTEND Nurse Practitioner Family | DX: M79.604 Pain in right leg (principal); M79.89 Other specified soft tissue disorders; Z72.0 Tobacco use; E78.5 Hyperlipidemia, unspecified | CPT/HCPCS: 36415; 80053; 80061; 84550; 85008; 85025 ==